=== PATIENT | female | born 1985 | race Caucasian/White ===

== ENCOUNTER 2016-12-09 16:21 | Emergency (ER) | payer MEDICARE, OTHER ==
[2016-12-09 16:29] VITALS: BP 134/88; PULSE 80; RESP 20; TEMP 98.3
[2016-12-09] MEDS ORDERED: BUPIVACAINE (PF) 0.5% 30 ML VIAL SQ STA (16:38)
--- NOTE | 2016-12-09 16:53 | ED ---
General Adult HPI - General Chief complaint: Dental/Oral Stated complaint: Tooth Ache Time Seen by Provider: 12/09/16 16:32 Source: patient, RN notes reviewed Mode of arrival: ambulatory Limitations: no limitations - History of Present Illness Initial comments: Patient is a 31-year-old female who presents emergency room today with a chief complaint of a dental filling that fell out yesterday. She does admit that she does have pain to the right side lower jaw. Does admit that it's sensitive to different liquids and hair itself. Patient does admit to some swelling locally. Does admit that it is a tooth and she is worried about possible infection. States she is trying to follow-up the dentist this week. Patient denies any other complaints or symptoms. Patient denies any recent fever, chills , shortness of breath, chest pain, back pain, abdominal pain, nausea or vomiting , numbness or tingling, dysuria or hematuria, constipation or diarrhea, headaches or visual changes, or any other complaints. - Related Data Home Medications Medication Instructions Recorded Confirmed Oxybutynin Chloride 5 mg PO TID 04/13/16 12/09/16 Escitalopram [Lexapro] 10 mg PO DAILY 05/08/16 12/09/16 Gabapentin 600 mg PO TID 05/08/16 12/09/16 Lurasidone HCl [Latuda] 20 mg PO DAILY 05/08/16 12/09/16 ALPRAZolam [Xanax] 0.5 mg PO BID PRN 12/09/16 12/09/16 Mirtazapine [Remeron] 45 mg PO HS 12/09/16 12/09/16 Previous Rx's Medication Instructions Recorded Acetaminophen-Codeine 300-30mg 1 each PO Q6H PRN #15 tablet 12/09/16 [Tylenol #3] Ibuprofen [Motrin] 600 mg PO Q6HR PRN #30 day 12/09/16 Penicillin V Potassium [Pen Vee K] 500 mg PO QID 10 Days 12/09/16 Allergies Allergy/AdvReac Type Severity Reaction Status Date / Time latex Allergy Mild Rash/Hives Verified 12/09/16 16:44 amphetamine aspartate Allergy SEIZURES Verified 12/09/16 16:44 [From Adderall] amphetamine sulfate Allergy SEIZURES Verified 12/09/16 16:44 [From Adderall] dextroamphetamine saccharate Allergy SEIZURES Verified 12/09/16 16:44 [From Adderall] dextroamphetamine sulfate Allergy SEIZURES Verified 12/09/16 16:44 [From Adderall] tramadol Allergy Unknown Verified 12/09/16 16:44 morphine AdvReac Mild Nausea & Verified 12/09/16 16:44 Vomiting Review of Systems ROS Statement: Those systems with pertinent positive or pertinent negative responses have been documented in the HPI. ROS Other: All systems not noted in ROS Statement are negative. Past Medical History Past Medical History: Asthma, GERD/Reflux, Rheumatoid Arthritis (RA), Sleep Apnea/CPAP/BIPAP, Thyroid Disorder Additional Past Medical History / Comment(s): sinusitis, low Vit D. IBS, kidney stones History of Any Multi-Drug Resistant Organisms: None Reported Past Surgical History: Adenoidectomy, Breast Surgery, Tonsillectomy, Tubal Ligation Additional Past Surgical History / Comment(s): tubes in ears, breast reduction Past Anesthesia/Blood Transfusion Reactions: Previous Problems w/ Anesthesia, Family History of Problems w/ Anesthesia, Motion Sickness, Postoperative Nausea & Vomiting (PONV) Additional Past Anesthesia/Blood Transfusion Reaction / Comment(s): states mother had coded during surgery Past Psychological History: Anxiety, Bipolar, Depression, PTSD Smoking Status: Current every day smoker Past Alcohol Use History: None Reported Past Drug Use History: Marijuana - Past Family History Father Family Medical History: Asthma Additional Family Medical History / Comment(s): Dad is 55 years of age. He also has history of ulcerative colitis. Mother Family Medical History: Rheumatoid Arthritis (RA), Thyroid Disorder (Atul's ) Additional Family Medical History / Comment(s): Mother is 47 years of age General Exam - General Exam Comments Initial Comments: General: The patient is awake and alert, in no distress, and does not appear acutely ill. Eye: Pupils are equal, round and reactive to light, extra-ocular movements are intact. No nystagmus. There is normal conjunctiva bilaterally. No signs of icterus. Ears, nose, mouth and throat: There are moist mucous membranes and no oral lesions. Does have tenderness in the gum line over tooth #30. Neck: The neck is supple, there is no tenderness or JVD. Cardiovascular: There is a regular rate and rhythm. No murmur, rub or gallop is appreciated. Respiratory: Lungs are clear to auscultation, respirations are non-labored, breath sounds are equal. No wheezes, stridor, rales, or rhonchi. Musculoskeletal: Normal ROM, no tenderness. Strength 5/5. Sensation intact. Pulses equal bilaterally 2+. Neurological: A&O x 3. CN II-XII intact, There are no obvious motor or sensory deficits. Coordination appears grossly intact. Speech is normal. Skin: Skin is warm and dry and no rashes or lesions are noted. Psychiatric: Cooperative, appropriate mood & affect, normal judgment. Limitations: no limitations Course Vital Signs 12/09/16 16:27 Temperature 98.3 F Pulse Rate 80 Respiratory 20 Rate Blood Pressure 134/88 Procedures - Procedures Initial comment: Total block performed here in the emergency room with 1:30 percent lidocaine without epi and 0.5% bupivacaine without epinephrine. Injection using 30-gauge needle used in the gumline of tooth #30. Patient had immediate relief. Disposition Clinical Impression: Pain, dental Disposition: HOME SELF-CARE Condition: Good Instructions: Toothache (ED) Additional Instructions: Please follow-up with dentist over the next 2-5 days. Please return to emergency room for any other concerns. Prescriptions: Acetaminophen-Codeine 300-30mg [Tylenol #3] 1 each PO Q6H PRN #15 tablet PRN Reason: Pain Ibuprofen [Motrin] 600 mg PO Q6HR PRN #30 day PRN Reason: Pain Penicillin V Potassium [Pen Vee K] 500 mg PO QID 10 Days Referrals: None,Stated [Primary Care Provider] - 1-2 days Time of Disposition: 16:52
== END 2016-12-09 17:05 | disposition home or self-care (01) ==
LOC: EC 16:21
DX: K08.89 Other specified disorders of teeth and supporting structures (principal); G47.30 Sleep apnea, unspecified; F41.9 Anxiety disorder, unspecified; F31.9 Bipolar disorder, unspecified; F43.10 Post-traumatic stress disorder, unspecified; F17.200 Nicotine dependence, unspecified, uncomplicated; Z88.5 Allergy status to narcotic agent; Z88.8 Allergy status to other drugs, medicaments and biological substances; Z91.040 Latex allergy status; Z79.899 Other long term (current) drug therapy
CPT/HCPCS: 64400; 99282

== ENCOUNTER 2017-02-08 21:35 | Emergency (ER) | payer MEDICARE, OTHER ==
[2017-02-08] MEDS ORDERED: SODIUM CHLORIDE 0.9% 1,000 ML IV STA ×2 (21:56)
[2017-02-08] MEDS ORDERED: KETOROLAC 30 MG/ML 1 ML VIAL IVP STA (21:56)
[2017-02-08] MEDS ORDERED: ONDANSETRON 4 MG/2 ML VIAL IVP STA (21:56)
[2017-02-08] MEDS ORDERED: HYDROmorphone 1 MG/ML 1 ML SYRINGE IVP STA ×2 (21:57→23:38)
[2017-02-08 22:09] LABS: Basophils # (A) 0.1 k/uL (0-0.2); Basophils % (A) 1 %; CH 33.8; CHCM 34.5; Eosinophils # (A) 0.2 k/uL (0-0.7); Eosinophils % (A) 2 %; HCT 40.4 % (34.0-46.0); Luc # (Auto) 0.27; Luc % (Auto) 3; Lymphocytes # (A) 3.8 k/uL (1.0-4.8); Lymphocytes % (A) 46 %; MCH 34.1 pg (25.0-35.0); MCHC 34.8 g/dL (31.0-37.0); MCV 98.1 fL (80.0-100.0); Mean Platelet Volume 7.2; Monocytes # (A) 0.3 k/uL (0-1.0); Monocytes % (A) 4 %; Neutrophils # (A) 3.7 k/uL (1.3-7.7); Neutrophils % (A) 44 %; RBC 4.11 m/uL (3.80-5.40); RDW 12.7 % (11.5-15.5); WBC 8.3 k/uL (3.8-10.6); WBC (Perox) 8.66
[2017-02-08 22:11] LABS: Appearance,Urine Cloudy (Clear); Bilirubin,Urine Negative (Negative); Glucose,Urine (UA) Negative (Negative); Ketones,Urine Negative (Negative); Leukocyte Esterase,Urine Small (Negative); Mucus,Urine Rare /hpf; Nitrite,Urine Negative (Negative); Particle Count 5122; Protein,Urine Trace (Negative); RBC,Urine 2 /hpf (0-5); Specific Gravity,Urine 1.015 (1.001-1.035); Squamous Epithelial Cell,Urine 10 /hpf (0-4); UA Billing (MACRO vs. MICRO) MICRO; Urobilinogen,Urine <2.0 mg/dL (<2.0); WBC,Urine 5 /hpf (0-5)
[2017-02-08 22:23] LABS: ALT 30 U/L (9-52); AST 52 U/L (14-36); Alkaline Phosphatase 77 U/L (38-126); Amylase 81 U/L (30-110); Anion Gap 10 mmol/L; Blood Urea Nitrogen 14 mg/dL (7-17); Calcium 9.5 mg/dL (8.4-10.2); Carbon Dioxide 20 mmol/L (22-30); Chloride 108 mmol/L (98-107); Glucose 84 mg/dL (74-99); Non-African American GFR(MDRD) >60 (>60 ml/min/1.73 sqM); Sodium 138 mmol/L (137-145); Total Bilirubin 1.1 mg/dL (0.2-1.3)
[2017-02-08 22:32] LABS: Potassium 5.5 mmol/L (3.5-5.1)
--- NOTE | 2017-02-08 22:44 | CT ---
EXAM: CT Abdomen and Pelvis Without Intravenous Contrast CLINICAL HISTORY: Reason: abdominal pain TECHNIQUE: Axial computed tomography images of the abdomen and pelvis without intravenous contrast. DLP is 360.9 mGy-cm. This CT exam was performed using one or more of the following dose reduction techniques: automated exposure control, adjustment of the mA and/or kV according to patient size, and/or use of iterative reconstruction technique. COMPARISON: 08/18/14 FINDINGS: Lower thorax: No acute findings. ABDOMEN: Liver: Unremarkable. Gallbladder and bile ducts: Unremarkable. No calcified stones. No ductal dilation. Pancreas: Unremarkable. No ductal dilation. Spleen: Unremarkable. No splenomegaly. Adrenals: Unremarkable. No mass. Kidneys and ureters: Unremarkable. No obstructing stones. No hydronephrosis. Stomach and bowel: Stool noted throughout the colon. No obstruction. No mucosal thickening. Appendix: No findings to suggest acute appendicitis. PELVIS: Bladder: Unremarkable. No stones. Reproductive: Unremarkable as visualized. ABDOMEN and PELVIS: Intraperitoneal space: Unremarkable. No free air. No significant fluid collection. Bones/joints: No acute fracture. No dislocation. Soft tissues: Unremarkable. Vasculature: Unremarkable. No abdominal aortic aneurysm. Lymph nodes: Unremarkable. No enlarged lymph nodes. Tubes, lines and devices: Surgical clips are seen in the pelvis. Correlate with history of tubal ligation. Note the left surgical clips do not appear to relate to the left adnexa/fallopian tubes. Correlate with surgical history. IMPRESSION: No acute findings.
[2017-02-08 23:51] VITALS: RESP 18
--- NOTE | 2017-02-09 00:07 | ED ---
General Adult HPI - General Chief complaint: Abdominal Pain Stated complaint: Abdominal Pain Time Seen by Provider: 02/08/17 21:37 Source: patient, EMS, RN notes reviewed, old records reviewed Mode of arrival: EMS Limitations: no limitations - History of Present Illness Initial comments: This is a 32-year-old female here for evaluation. Patient has a percussion without pain nausea. Severe abdominal pain sudden onset and worsening. Patient states she has history of kidney stones and this feels the same, but the patient is right sided right upper quadrant. Worse when she takes a deep breath. Worse when she moves. No modifying factors for pain at home. No fevers. No prior history of abdominal surgery. Patient denies - Related Data Home Medications Medication Instructions Recorded Confirmed Escitalopram [Lexapro] 10 mg PO QAM 05/08/16 02/08/17 Gabapentin 600 mg PO TID 05/08/16 02/08/17 Lurasidone HCl [Latuda] 20 mg PO HS 05/08/16 02/08/17 ALPRAZolam [Xanax] 0.5 mg PO BID PRN 12/09/16 02/08/17 Albuterol Inhaler [Ventolin Hfa 1 - 2 puff INHALATION RT-Q6H PRN 02/08/17 Inhaler] Allergies Allergy/AdvReac Type Severity Reaction Status Date / Time amphetamine aspartate Allergy SEIZURES Verified 02/08/17 22:33 [From Adderall] amphetamine sulfate Allergy SEIZURES Verified 02/08/17 22:33 [From Adderall] dextroamphetamine saccharate Allergy SEIZURES Verified 02/08/17 22:33 [From Adderall] dextroamphetamine sulfate Allergy SEIZURES Verified 02/08/17 22:33 [From Adderall] tramadol Allergy Unknown Verified 02/08/17 22:33 latex AdvReac Mild Dry Verified 02/08/17 22:33 Cracked Skin morphine AdvReac Mild Nausea & Verified 02/08/17 22:33 Vomiting Review of Systems ROS Statement: Those systems with pertinent positive or pertinent negative responses have been documented in the HPI. ROS Other: All systems not noted in ROS Statement are negative. Past Medical History Past Medical History: Asthma, GERD/Reflux, Rheumatoid Arthritis (RA), Sleep Apnea/CPAP/BIPAP, Thyroid Disorder Additional Past Medical History / Comment(s): sinusitis, low Vit D. IBS, kidney stones, p is being evaluated for hep c History of Any Multi-Drug Resistant Organisms: None Reported Past Surgical History: Adenoidectomy, Breast Surgery, Tonsillectomy, Tubal Ligation Additional Past Surgical History / Comment(s): tubes in ears, breast reduction Past Anesthesia/Blood Transfusion Reactions: Previous Problems w/ Anesthesia, Family History of Problems w/ Anesthesia, Motion Sickness, Postoperative Nausea & Vomiting (PONV) Additional Past Anesthesia/Blood Transfusion Reaction / Comment(s): states mother had coded during surgery Past Psychological History: Anxiety, Bipolar, Depression, PTSD Smoking Status: Current every day smoker Past Alcohol Use History: Occasional Past Drug Use History: Marijuana - Past Family History Father Family Medical History: Asthma Additional Family Medical History / Comment(s): Dad is 55 years of age. He also has history of ulcerative colitis. Mother Family Medical History: Rheumatoid Arthritis (RA), Thyroid Disorder (Atul's ) Additional Family Medical History / Comment(s): Mother is 47 years of age General Exam Limitations: no limitations General appearance: alert, in no apparent distress Head exam: Present: atraumatic, normocephalic, normal inspection Eye exam: Present: normal appearance, PERRL, EOMI. Absent: scleral icterus, conjunctival injection, periorbital swelling ENT exam: Present: normal exam, mucous membranes moist Neck exam: Present: normal inspection. Absent: tenderness, meningismus, lymphadenopathy Respiratory exam: Present: normal lung sounds bilaterally. Absent: respiratory distress, wheezes, rales, rhonchi, stridor Cardiovascular Exam: Present: regular rate, normal rhythm, normal heart sounds. Absent: systolic murmur, diastolic murmur, rubs, gallop, clicks GI/Abdominal exam: Present: soft, tenderness (Right upper quadrant), normal bowel sounds. Absent: distended, guarding, rebound, rigid Extremities exam: Present: normal inspection, full ROM, normal capillary refill. Absent: tenderness, pedal edema, joint swelling, calf tenderness Back exam: Present: normal inspection Neurological exam: Present: alert, oriented X3, CN II-XII intact Psychiatric exam: Present: normal affect, normal mood Skin exam: Present: warm, dry, intact, normal color. Absent: rash Course Vital Signs 02/08/17 02/08/17 02/08/17 21:48 22:30 23:50 Temperature 98 F Pulse Rate 105 H 84 90 Respiratory 18 16 18 Rate Blood Pressure 120/66 120/66 119/71 O2 Sat by Pulse 98 96 96 Oximetry - Reevaluation(s) Reevaluation #1: 02/09/17 00:07 The patient has adequate pain control at this time, reexamination patient paper machine backtender over right upper quadrant Medical Decision Making - Medical Decision Making 32 female at here with bowel pain, this time lab work multiple sets of imaging are negative. Patient be discharged home to continue outpatient pain control. - Lab Data Result diagrams: 02/08/17 21:56 02/08/17 21:56 Lab Results 02/08/17 02/08/17 02/08/17 Range/Units 21:56 21:56 21:56 WBC 8.3 (3.8-10.6) k/uL RBC 4.11 (3.80-5.40) m/uL Hgb 14.0 (11.4-16.0) gm/dL Hct 40.4 (34.0-46.0) % MCV 98.1 (80.0-100.0) fL MCH 34.1 (25.0-35.0) pg MCHC 34.8 (31.0-37.0) g/dL RDW 12.7 (11.5-15.5) % Plt Count 276 (150-450) k/uL Neutrophils % 44 % Lymphocytes % 46 % Monocytes % 4 % Eosinophils % 2 % Basophils % 1 % Neutrophils # 3.7 (1.3-7.7) k/uL Lymphocytes # 3.8 (1.0-4.8) k/uL Monocytes # 0.3 (0-1.0) k/uL Eosinophils # 0.2 (0-0.7) k/uL Basophils # 0.1 (0-0.2) k/uL Sodium 138 (137-145) mmol/L Potassium 5.5 H (3.5-5.1) mmol/L Chloride 108 H (98-107) mmol/L Carbon Dioxide 20 L (22-30) mmol/L Anion Gap 10 mmol/L BUN 14 (7-17) mg/dL Creatinine 0.80 (0.52-1.04) mg/dL Est GFR (MDRD) Af Amer >60 (>60 ml/min/1.73 sqM) Est GFR (MDRD) Non-Af >60 (>60 ml/min/1.73 sqM) Glucose 84 (74-99) mg/dL Calcium 9.5 (8.4-10.2) mg/dL Total Bilirubin 1.1 (0.2-1.3) mg/dL AST 52 H (14-36) U/L ALT 30 (9-52) U/L Alkaline Phosphatase 77 (38-126) U/L Total Protein 7.0 (6.3-8.2) g/dL Albumin 4.3 (3.5-5.0) g/dL Amylase 81 (30-110) U/L Lipase 127 (23-300) U/L Urine Color Urine Appearance (Clear) Urine pH (5.0-8.0) Ur Specific [place] (1.001-1.035) Urine Protein (Negative) Urine Glucose (UA) (Negative) Urine Ketones (Negative) Urine Blood (Negative) Urine Nitrite (Negative) Urine Bilirubin (Negative) Urine Urobilinogen (<2.0) mg/dL Ur Leukocyte Esterase (Negative) Urine RBC (0-5) /hpf Urine WBC (0-5) /hpf Ur Squamous Epith Cells (0-4) /hpf Urine Mucus (None) /hpf Urine HCG, Qual Not Detected (Not Detectd) 02/08/17 Range/Units 21:56 WBC (3.8-10.6) k/uL RBC (3.80-5.40) m/uL Hgb (11.4-16.0) gm/dL Hct (34.0-46.0) % MCV (80.0-100.0) fL MCH (25.0-35.0) pg MCHC (31.0-37.0) g/dL RDW (11.5-15.5) % Plt Count (150-450) k/uL Neutrophils % % Lymphocytes % % Monocytes % % Eosinophils % % Basophils % % Neutrophils # (1.3-7.7) k/uL Lymphocytes # (1.0-4.8) k/uL Monocytes # (0-1.0) k/uL Eosinophils # (0-0.7) k/uL Basophils # (0-0.2) k/uL Sodium (137-145) mmol/L Potassium (3.5-5.1) mmol/L Chloride (98-107) mmol/L Carbon Dioxide (22-30) mmol/L Anion Gap mmol/L BUN (7-17) mg/dL Creatinine (0.52-1.04) mg/dL Est GFR (MDRD) Af Amer (>60 ml/min/1.73 sqM) Est GFR (MDRD) Non-Af (>60 ml/min/1.73 sqM) Glucose (74-99) mg/dL Calcium (8.4-10.2) mg/dL Total Bilirubin (0.2-1.3) mg/dL AST (14-36) U/L ALT (9-52) U/L Alkaline Phosphatase (38-126) U/L Total Protein (6.3-8.2) g/dL Albumin (3.5-5.0) g/dL Amylase (30-110) U/L Lipase (23-300) U/L Urine Color Yellow Urine Appearance Cloudy H (Clear) Urine pH 6.0 (5.0-8.0) Ur Specific [place] 1.015 (1.001-1.035) Urine Protein Trace H (Negative) Urine Glucose (UA) Negative (Negative) Urine Ketones Negative (Negative) Urine Blood Negative (Negative) Urine Nitrite Negative (Negative) Urine Bilirubin Negative (Negative) Urine Urobilinogen <2.0 (<2.0) mg/dL Ur Leukocyte Esterase Small H (Negative) Urine RBC 2 (0-5) /hpf Urine WBC 5 (0-5) /hpf Ur Squamous Epith Cells 10 H (0-4) /hpf Urine Mucus Rare H (None) /hpf Urine HCG, Qual (Not Detectd) - Radiology Data Radiology results: report reviewed (CT pelvis negative, ultrasound of gallbladder), image reviewed Disposition Clinical Impression: Abdominal pain Disposition: HOME SELF-CARE Condition: Good Instructions: Abdominal Pain (ED) Referrals: Myles Foster MD [Primary Care Provider] - 1-2 days
--- NOTE | 2017-02-09 00:18 | US ---
EXAM: US Abdomen Limited, Right Upper Quadrant CLINICAL HISTORY: Reason: Pain TECHNIQUE: Real-time ultrasound of the right upper quadrant with image documentation. COMPARISON: No relevant prior studies available. FINDINGS: Liver: Unremarkable. No mass. No intrahepatic bile duct dilation. Gallbladder: Contracted. No gallstones. No significant wall thickening or pericholecystic fluid. Common bile duct: CBD is 2.2 mm in diameter. No stones. No dilation. Pancreas: Pancreatic tail is obscured by bowel gas. The head and neck are unremarkable. Right kidney: Unremarkable. No stones. No solid mass. No hydronephrosis. IMPRESSION: No evidence of cholecystitis.
[2017-02-09 00:59] VITALS: BP 107/76; PULSE 83; TEMP 97.9
== END 2017-02-09 00:58 | disposition home or self-care (01) ==
LOC: EC 21:35
DX: R10.11 Right upper quadrant pain (principal); F41.9 Anxiety disorder, unspecified; F31.9 Bipolar disorder, unspecified; F43.10 Post-traumatic stress disorder, unspecified; F17.200 Nicotine dependence, unspecified, uncomplicated; Z79.899 Other long term (current) drug therapy; Z88.5 Allergy status to narcotic agent; Z91.040 Latex allergy status; Z88.8 Allergy status to other drugs, medicaments and biological substances
CPT/HCPCS: 36415; 80053; 82150; 83690; 85025; 81001; 81025; 87086; 76705; 74176; 99285; 96374; 96375 ×2; 96376; 96361 ×3; J2405; J1885; J1170

== ENCOUNTER → 2017-02-08 | Outpatient (CLI) | payer MEDICARE, OTHER ==
[2017-02-08 12:09] LABS: Basophils # (A) 0.1 k/uL (0-0.2); Basophils % (A) 1 %; CH 33.3; CHCM 33.9; Eosinophils # (A) 0.1 k/uL (0-0.7); Eosinophils % (A) 2 %; HCT 43.1 % (34.0-46.0); HDW 2.43; HGB 15.2 gm/dL (11.4-16.0); Luc # (Auto) 0.25; Luc % (Auto) 4; Lymphocytes # (A) 3.2 k/uL (1.0-4.8); Lymphocytes % (A) 48 %; MCH 34.5 pg (25.0-35.0); MCHC 35.1 g/dL (31.0-37.0); MCV 98.3 fL (80.0-100.0); Mean Platelet Volume 7.3; Monocytes # (A) 0.4 k/uL (0-1.0); Monocytes % (A) 6 %; Neutrophils # (A) 2.6 k/uL (1.3-7.7); Neutrophils % (A) 39 %; RBC 4.39 m/uL (3.80-5.40); RDW 12.7 % (11.5-15.5); WBC 6.6 k/uL (3.8-10.6); WBC (Perox) 6.71
[2017-02-08 12:17] LABS: ALT 36 U/L (9-52); AST 24 U/L (14-36); Alkaline Phosphatase 80 U/L (38-126); Anion Gap 9 mmol/L; Blood Urea Nitrogen 14 mg/dL (7-17); Calcium 10.1 mg/dL (8.4-10.2); Carbon Dioxide 26 mmol/L (22-30); Chloride 107 mmol/L (98-107); Glucose 76 mg/dL (74-99); Non-African American GFR(MDRD) >60 (>60 ml/min/1.73 sqM); Potassium 4.4 mmol/L (3.5-5.1); Sodium 142 mmol/L (137-145); Total Bilirubin 0.5 mg/dL (0.2-1.3)
[2017-02-11 09:54] LABS: HCV Qualitative Result Not detected (Not detected)
== END | disposition home or self-care (01) ==
LOC: LABWHC1 11:27
PROVIDERS: ATTEND Internal Medicine Gastroenterology
DX: B18.2 Chronic viral hepatitis C (principal)
CPT/HCPCS: 36415; 80053; 85025; 87522

== ENCOUNTER 2017-02-28 12:10 | Emergency (ER) | payer MEDICARE, OTHER ==
[2017-02-28 12:41] VITALS: RESP 18
[2017-02-28] MEDS ORDERED: LORazepam 1 MG TAB PO STA (13:02)
[2017-02-28] MEDS ORDERED: diphenhydrAMINE 50 MG CAP PO STA (13:02)
[2017-02-28] MEDS ORDERED: HYDROcodone/APAP 5-325MG 1 EACH TAB PO STA (13:02)
[2017-02-28] MEDS ORDERED: ONDANSETRON ODT 4 MG TAB PO STA (13:02)
[2017-02-28] MEDS ORDERED: predniSONE 50 MG TAB PO STA (13:21)
[2017-02-28] MEDS ORDERED: FAMOTIDINE 20 MG TAB PO STA (13:21)
--- NOTE | 2017-02-28 13:24 | ED ---
General Adult HPI - General Chief complaint: Nausea/Vomiting/Diarrhea Stated complaint: Rash, Fever, NVD Time Seen by Provider: 02/28/17 12:43 Source: patient, RN notes reviewed, old records reviewed Mode of arrival: ambulatory Limitations: no limitations - History of Present Illness Initial comments: This is a 32-year-old female to the ER for evaluation today. Patient is coming in for a multitude of complaints. Patient states she does have some history of psychiatric disease, has been unable to take her medication from for 3 days for nausea vomiting and diarrhea. States she does have similar sick contacts including boyfriend and friend. States he was also exposed to fleas she does have significant amount of bug bites which also her boyfriend have. The friend just moved into her house recently. Patient is otherwise occasional fevers and chills. No documented fever at home. Denies shortness of breath or chest pain , occasional abdominal pain when she does experience nausea and diarrhea. No travel history. No modifying factors for symptoms at this time. - Related Data Home Medications Medication Instructions Recorded Confirmed Escitalopram [Lexapro] 10 mg PO QAM 05/08/16 02/08/17 Gabapentin 600 mg PO TID 05/08/16 02/08/17 Lurasidone HCl [Latuda] 20 mg PO HS 05/08/16 02/08/17 ALPRAZolam [Xanax] 0.5 mg PO BID PRN 12/09/16 02/08/17 Albuterol Inhaler [Ventolin Hfa 1 - 2 puff INHALATION RT-Q6H PRN 02/08/17 Inhaler] Allergies Allergy/AdvReac Type Severity Reaction Status Date / Time amphetamine aspartate Allergy SEIZURES Verified 02/28/17 12:41 [From Adderall] amphetamine sulfate Allergy SEIZURES Verified 02/28/17 12:41 [From Adderall] dextroamphetamine saccharate Allergy SEIZURES Verified 02/28/17 12:41 [From Adderall] dextroamphetamine sulfate Allergy SEIZURES Verified 02/28/17 12:41 [From Adderall] tramadol Allergy Unknown Verified 02/28/17 12:41 latex AdvReac Mild Dry Verified 02/28/17 12:41 Cracked Skin morphine AdvReac Mild Nausea & Verified 02/28/17 12:41 Vomiting Review of Systems ROS Statement: Those systems with pertinent positive or pertinent negative responses have been documented in the HPI. ROS Other: All systems not noted in ROS Statement are negative. Past Medical History Past Medical History: Asthma, GERD/Reflux, Rheumatoid Arthritis (RA), Sleep Apnea/CPAP/BIPAP, Thyroid Disorder Additional Past Medical History / Comment(s): sinusitis, low Vit D. IBS, kidney stones, p is being evaluated for hep c History of Any Multi-Drug Resistant Organisms: None Reported Past Surgical History: Adenoidectomy, Breast Surgery, Tonsillectomy, Tubal Ligation Additional Past Surgical History / Comment(s): tubes in ears, breast reduction Past Anesthesia/Blood Transfusion Reactions: Previous Problems w/ Anesthesia, Family History of Problems w/ Anesthesia, Motion Sickness, Postoperative Nausea & Vomiting (PONV) Additional Past Anesthesia/Blood Transfusion Reaction / Comment(s): states mother had coded during surgery Past Psychological History: Anxiety, Bipolar, Depression, PTSD Smoking Status: Current every day smoker Past Alcohol Use History: Occasional Past Drug Use History: Marijuana - Past Family History Father Family Medical History: Asthma Additional Family Medical History / Comment(s): Dad is 55 years of age. He also has history of ulcerative colitis. Mother Family Medical History: Rheumatoid Arthritis (RA), Thyroid Disorder (Atul's ) Additional Family Medical History / Comment(s): Mother is 47 years of age General Exam - General Exam Comments Initial Comments: Diffuse body rash,. Acute urticaria, pruritic Limitations: no limitations General appearance: alert, in no apparent distress Head exam: Present: atraumatic, normocephalic, normal inspection Eye exam: Present: normal appearance, PERRL, EOMI. Absent: scleral icterus, conjunctival injection, periorbital swelling ENT exam: Present: normal exam, mucous membranes moist Neck exam: Present: normal inspection. Absent: tenderness, meningismus, lymphadenopathy Respiratory exam: Present: normal lung sounds bilaterally. Absent: respiratory distress, wheezes, rales, rhonchi, stridor Cardiovascular Exam: Present: regular rate, normal rhythm, normal heart sounds. Absent: systolic murmur, diastolic murmur, rubs, gallop, clicks GI/Abdominal exam: Present: soft, normal bowel sounds. Absent: distended, tenderness, guarding, rebound, rigid Extremities exam: Present: normal inspection, full ROM, normal capillary refill. Absent: tenderness, pedal edema, joint swelling, calf tenderness Back exam: Present: normal inspection Neurological exam: Present: alert, oriented X3, CN II-XII intact Psychiatric exam: Present: normal affect, normal mood Skin exam: Present: warm, dry, intact, normal color. Absent: rash Course Vital Signs 02/28/17 12:38 Temperature 97.6 F Pulse Rate 94 Respiratory 18 Rate Blood Pressure 141/89 O2 Sat by Pulse 95 Oximetry - Reevaluation(s) Reevaluation #1: 02/28/17 13:21 Patient does have significant improvement in all symptoms at this time, no acute distress Medical Decision Making - Medical Decision Making 32 female the ER for evaluation regarding a rash, nausea, vomiting, patient does have will look sick evaluation for rash regarded gratefully with itching of her itching is improved with Benadryl here in the ER. Patient will be given course of steroids with nausea medication for home. Patient to take Motrin at home for pain. Underlying viral syndrome. Disposition Clinical Impression: Abdominal pain, Nausea and vomiting, Flea bite, Viral syndrome Disposition: HOME SELF-CARE Condition: Good Instructions: Viral Syndrome (ED), Insect Bite or Sting (ED) Referrals: Myles Foster MD [Primary Care Provider] - 1-2 days
[2017-02-28 13:56] VITALS: BP 126/78; PULSE 87; TEMP 97.8
== END 2017-02-28 14:15 | disposition home or self-care (01) ==
LOC: EC 12:10
DX: T14.8XXA Other injury of unspecified body region, initial encounter (principal); R10.9 Unspecified abdominal pain; R11.2 Nausea with vomiting, unspecified; R19.7 Diarrhea, unspecified; B34.9 Viral infection, unspecified; F31.9 Bipolar disorder, unspecified; F41.9 Anxiety disorder, unspecified; F43.10 Post-traumatic stress disorder, unspecified; F17.200 Nicotine dependence, unspecified, uncomplicated; Z79.899 Other long term (current) drug therapy; Z88.5 Allergy status to narcotic agent; Z88.8 Allergy status to other drugs, medicaments and biological substances; Z88.6 Allergy status to analgesic agent; Z91.040 Latex allergy status; W57.XXXA Bitten or stung by nonvenomous insect and other nonvenomous arthropods, initial encounter
CPT/HCPCS: 99284 ×2; 87502; J7512

== ENCOUNTER 2017-04-08 14:26 | Emergency (ER) | payer MEDICARE, OTHER ==
[2017-04-08] MEDS ORDERED: diphenhydrAMINE 50 MG/ML 1 ML VIAL IVP STA (15:03)
[2017-04-08] MEDS ORDERED: PANTOPRAZOLE 40 MG/10 ML VIAL IVP STA (15:03)
[2017-04-08] MEDS ORDERED: SODIUM CHLORIDE 0.9% 1,000 ML IV STA ×2 (15:03)
[2017-04-08] MEDS ORDERED: METOCLOPRAMIDE 5 MG/ML 2 ML VIAL IVP STA (15:03)
[2017-04-08] MEDS ORDERED: HYDROmorphone 0.5 MG/0.5 ML SYRINGE IVP STA (15:03)
[2017-04-08] MEDS ORDERED: MAG HYDROX/AL HYDROX/SIMETH 30 ML, HYOSCYAMINE ELIXIR 10 ML, CIMETIDINE HCL 300 MG, LID... PO STA ×4 (15:05)
[2017-04-08] MEDS ORDERED: HYDROmorphone 1 MG/ML 1 ML SYRINGE IVP STA (15:09)
--- NOTE | 2017-04-08 15:16 | ED ---
Abdominal Pain HPI - General Chief Complaint: Abdominal Pain Stated Complaint: Abd Pain Time Seen by Provider: 04/08/17 14:47 Source: patient, RN notes reviewed, old records reviewed Mode of arrival: ambulatory Limitations: no limitations - History of Present Illness Initial Comments: Patient is a 32-year-old female presents emergency Department chief complaint of one month of epigastric abdominal pain, severe nausea and multiple episodes of vomiting. Patient reports she had an episode of bloody vomiting today. Patient states that she goes to bed feeling nauseated, and wakes of vomiting. She reports that she has abdominal pain and the only way she can relieve it is by aching alcohol. Patient reports that she drinks approximately every day. She states that she has no history of gallbladder disease. Surgical history includes tubal ligation, tonsillectomy and adenoidectomy, and right arm veinectomy for abscess. She reports that she saw her primary care provider regards to the symptoms. She states that the primary care provider started her on Prilosec and Zofran. She reports that this is not helping. Patient states that she has a burning-like pain in the center of her abdomen and occasionally radiates towards her back. She reports that she has a family history of ulcerative clysis had previous colonoscopy. She was told that she does have GERD. She reports that the vomiting episodes and pain started to recur so she started drinking this morning at 5 AM. She had a 25 oz beer. - Related Data Home Medications Medication Instructions Recorded Confirmed Gabapentin 600 mg PO TID 05/08/16 04/08/17 Lurasidone HCl [Latuda] 20 mg PO QAM 05/08/16 04/08/17 ALPRAZolam [Xanax] 0.5 mg PO BID PRN 12/09/16 04/08/17 Albuterol Inhaler [Ventolin Hfa 1 - 2 puff INHALATION RT-Q6H PRN 02/08/17 Inhaler] Oxybutynin Chloride [Ditropan] 5 mg PO TID 02/28/17 04/08/17 Escitalopram [Lexapro] 20 mg PO DAILY 04/08/17 04/08/17 Mirtazapine [Remeron] 15 mg PO HS 04/08/17 04/08/17 Omeprazole 20 mg PO DAILY 04/08/17 04/08/17 Previous Rx's Medication Instructions Recorded Metoclopramide [Reglan] 5 mg PO ACHS #15 tab 04/08/17 Omeprazole 40 mg PO DAILY #30 capsule. 04/08/17 Sucralfate [Carafate] 1 gm PO BID #60 tablet 04/08/17 chlordiazePOXIDE HCl [Librium] 25 mg PO QID #10 capsule 04/08/17 Allergies Allergy/AdvReac Type Severity Reaction Status Date / Time amphetamine aspartate Allergy SEIZURES Verified 04/08/17 14:59 [From Adderall] amphetamine sulfate Allergy SEIZURES Verified 04/08/17 14:59 [From Adderall] dextroamphetamine saccharate Allergy SEIZURES Verified 04/08/17 14:59 [From Adderall] dextroamphetamine sulfate Allergy SEIZURES Verified 04/08/17 14:59 [From Adderall] tramadol Allergy Unknown Verified 04/08/17 14:59 latex AdvReac Mild Dry Verified 04/08/17 14:59 Cracked Skin morphine AdvReac Mild Nausea & Verified 04/08/17 14:59 Vomiting Review of Systems ROS Statement: Those systems with pertinent positive or pertinent negative responses have been documented in the HPI. ROS Other: All systems not noted in ROS Statement are negative. Past Medical History Past Medical History: Asthma, GERD/Reflux, Rheumatoid Arthritis (RA), Sleep Apnea/CPAP/BIPAP, Thyroid Disorder Additional Past Medical History / Comment(s): sinusitis, low Vit D. IBS, kidney stones, p is being evaluated for hep c History of Any Multi-Drug Resistant Organisms: None Reported Past Surgical History: Adenoidectomy, Breast Surgery, Tonsillectomy, Tubal Ligation Additional Past Surgical History / Comment(s): tubes in ears, breast reduction Past Anesthesia/Blood Transfusion Reactions: Previous Problems w/ Anesthesia, Family History of Problems w/ Anesthesia, Motion Sickness, Postoperative Nausea & Vomiting (PONV) Additional Past Anesthesia/Blood Transfusion Reaction / Comment(s): states mother had coded during surgery Past Psychological History: Anxiety, Bipolar, Depression, PTSD Smoking Status: Current every day smoker Past Alcohol Use History: Occasional Past Drug Use History: Marijuana - Past Family History Father Family Medical History: Asthma Additional Family Medical History / Comment(s): Dad is 55 years of age. He also has history of ulcerative colitis. Mother Family Medical History: Rheumatoid Arthritis (RA), Thyroid Disorder (Atul's ) Additional Family Medical History / Comment(s): Mother is 47 years of age General Exam - General Exam Comments Initial Comments: Anxious 32-year-old female. Patient is crying in exam room. Limitations: no limitations General appearance: alert, in no apparent distress Head exam: Present: atraumatic, normocephalic, normal inspection Eye exam: Present: normal appearance, PERRL, EOMI. Absent: scleral icterus, conjunctival injection, periorbital swelling ENT exam: Present: normal exam, mucous membranes moist Neck exam: Present: normal inspection. Absent: tenderness, meningismus, lymphadenopathy Respiratory exam: Present: normal lung sounds bilaterally. Absent: respiratory distress, wheezes, rales, rhonchi, stridor Cardiovascular Exam: Present: regular rate, normal rhythm, normal heart sounds. Absent: systolic murmur, diastolic murmur, rubs, gallop, clicks GI/Abdominal exam: Present: soft, normal bowel sounds. Absent: distended, tenderness, guarding, rebound, rigid Extremities exam: Present: normal inspection, full ROM, normal capillary refill. Absent: tenderness, pedal edema, joint swelling, calf tenderness Back exam: Present: normal inspection Neurological exam: Present: alert, oriented X3, CN II-XII intact Psychiatric exam: Present: normal affect, normal mood Skin exam: Present: warm, dry, intact, normal color. Absent: rash Course Vital Signs 04/08/17 04/08/17 14:41 16:56 Temperature 98.5 F 97.1 F L Pulse Rate 95 80 Respiratory 16 19 Rate Blood Pressure 124/92 126/80 O2 Sat by Pulse 97 98 Oximetry Medical Decision Making - Medical Decision Making Patient is a 32-year-old female presents emergency Department chief complaint of one month of epigastric abdominal pain, severe nausea and multiple episodes of vomiting. Patient reports she had an episode of bloody vomiting today. Patient states that she goes to bed feeling nauseated, and wakes of vomiting. She reports that she has abdominal pain and the only way she can relieve it is by aching alcohol. Patient reports that she drinks approximately every day. Patient has minimal RUQ and epigastric tenderness, discussed that patient has gastritis and likely an ulcer at this time. Discussed that consuming alcohol is making her problem worse. PAtient labs were reviewed, normal hemoglobin, negative occult stool. PAtient KUB shows possible illeus or gastrenteritis. Patient given GI cocktail and nausea medication and is feeling better at thsi time. Patient did have serum alcohol of 83. Patient will be discharged with librium taper for alcohol abuse and advised to stop drinking and seizure prevention, she will also be started on Carafate, prilosec, and reglan. Discussed close follow up with PCP and gI specialist. - Lab Data Result diagrams: 04/08/17 15:28 04/08/17 15:28 Lab Results 04/08/17 04/08/17 04/08/17 Range/Units 15:28 15:28 15:28 WBC 8.9 (3.8-10.6) k/uL RBC 4.72 (3.80-5.40) m/uL Hgb 15.7 (11.4-16.0) gm/dL Hct 46.1 H (34.0-46.0) % MCV 97.7 (80.0-100.0) fL MCH 33.3 (25.0-35.0) pg MCHC 34.1 (31.0-37.0) g/dL RDW 12.1 (11.5-15.5) % Plt Count 326 (150-450) k/uL Neutrophils % 37 % Lymphocytes % 52 % Monocytes % 5 % Eosinophils % 2 % Basophils % 1 % Neutrophils # 3.3 (1.3-7.7) k/uL Lymphocytes # 4.6 (1.0-4.8) k/uL Monocytes # 0.5 (0-1.0) k/uL Eosinophils # 0.2 (0-0.7) k/uL Basophils # 0.1 (0-0.2) k/uL PT 10.3 (9.0-12.0) sec INR 1.0 (<1.2) APTT 25.2 (22.0-30.0) sec Sodium 143 (137-145) mmol/L Potassium 4.2 (3.5-5.1) mmol/L Chloride 106 (98-107) mmol/L Carbon Dioxide 24 (22-30) mmol/L Anion Gap 13 mmol/L BUN 14 (7-17) mg/dL Creatinine 0.80 (0.52-1.04) mg/dL Est GFR (MDRD) Af Amer >60 (>60 ml/min/1.73 sqM) Est GFR (MDRD) Non-Af >60 (>60 ml/min/1.73 sqM) Glucose 82 (74-99) mg/dL Calcium 10.4 H (8.4-10.2) mg/dL Total Bilirubin 0.3 (0.2-1.3) mg/dL AST 30 (14-36) U/L ALT 28 (9-52) U/L Alkaline Phosphatase 90 (38-126) U/L Total Protein 7.4 (6.3-8.2) g/dL Albumin 4.7 (3.5-5.0) g/dL Amylase 60 (30-110) U/L Lipase 60 (23-300) U/L Urine Color Urine Appearance (Clear) Urine pH (5.0-8.0) Ur Specific [place] (1.001-1.035) Urine Protein (Negative) Urine Glucose (UA) (Negative) Urine Ketones (Negative) Urine Blood (Negative) Urine Nitrite (Negative) Urine Bilirubin (Negative) Urine Urobilinogen (<2.0) mg/dL Ur Leukocyte Esterase (Negative) Urine RBC (0-5) /hpf Urine WBC (0-5) /hpf Ur Squamous Epith Cells (0-4) /hpf Urine Mucus (None) /hpf Stool Occult Blood (Negative) Serum Alcohol 81 mg/dL 04/08/17 04/08/17 Range/Units 15:28 16:30 WBC (3.8-10.6) k/uL RBC (3.80-5.40) m/uL Hgb (11.4-16.0) gm/dL Hct (34.0-46.0) % MCV (80.0-100.0) fL MCH (25.0-35.0) pg MCHC (31.0-37.0) g/dL RDW (11.5-15.5) % Plt Count (150-450) k/uL Neutrophils % % Lymphocytes % % Monocytes % % Eosinophils % % Basophils % % Neutrophils # (1.3-7.7) k/uL Lymphocytes # (1.0-4.8) k/uL Monocytes # (0-1.0) k/uL Eosinophils # (0-0.7) k/uL Basophils # (0-0.2) k/uL PT (9.0-12.0) sec INR (<1.2) APTT (22.0-30.0) sec Sodium (137-145) mmol/L Potassium (3.5-5.1) mmol/L Chloride (98-107) mmol/L Carbon Dioxide (22-30) mmol/L Anion Gap mmol/L BUN (7-17) mg/dL Creatinine (0.52-1.04) mg/dL Est GFR (MDRD) Af Amer (>60 ml/min/1.73 sqM) Est GFR (MDRD) Non-Af (>60 ml/min/1.73 sqM) Glucose (74-99) mg/dL Calcium (8.4-10.2) mg/dL Total Bilirubin (0.2-1.3) mg/dL AST (14-36) U/L ALT (9-52) U/L Alkaline Phosphatase (38-126) U/L Total Protein (6.3-8.2) g/dL Albumin (3.5-5.0) g/dL Amylase (30-110) U/L Lipase (23-300) U/L Urine Color Light Yellow Urine Appearance Cloudy H (Clear) Urine pH 7.0 (5.0-8.0) Ur Specific [place] 1.012 (1.001-1.035) Urine Protein Negative (Negative) Urine Glucose (UA) Negative (Negative) Urine Ketones Negative (Negative) Urine Blood Trace H (Negative) Urine Nitrite Negative (Negative) Urine Bilirubin Negative (Negative) Urine Urobilinogen <2.0 (<2.0) mg/dL Ur Leukocyte Esterase Negative (Negative) Urine RBC 1 (0-5) /hpf Urine WBC 3 (0-5) /hpf Ur Squamous Epith Cells 5 H (0-4) /hpf Urine Mucus Rare H (None) /hpf Stool Occult Blood Negative (Negative) Serum Alcohol mg/dL Disposition Clinical Impression: Gastritis, Alcohol use Disposition: HOME SELF-CARE Condition: Good Instructions: Gastritis (ED) Additional Instructions: Patient advised to avoid any acidic foods, have a bland diet including bananas rice applesauce and toast. Recommended following up with GI specialist as well as primary care provider. Take all the medicines as prescribed. Patient needs to discontinue drinking alcohol. Use the Librium taper as directed. Prescriptions: chlordiazePOXIDE HCl [Librium] 25 mg PO QID #10 capsule Metoclopramide [Reglan] 5 mg PO ACHS #15 tab Omeprazole 40 mg PO DAILY #30 capsule. Sucralfate [Carafate] 1 gm PO BID #60 tablet Referrals: Myles Foster MD [Primary Care Provider] - 1-2 days Time of Disposition: 16:42
[2017-04-08 15:58] LABS: Appearance,Urine Cloudy (Clear); Basophils # (A) 0.1 k/uL (0-0.2); Basophils % (A) 1 %; Bilirubin,Urine Negative (Negative); CH 34.3; CHCM 35.3; Eosinophils # (A) 0.2 k/uL (0-0.7); Eosinophils % (A) 2 %; Glucose,Urine (UA) Negative (Negative); HCT 46.1 % (34.0-46.0); HDW 2.53; HGB 15.7 gm/dL (11.4-16.0); Ketones,Urine Negative (Negative); Leukocyte Esterase,Urine Negative (Negative); Luc # (Auto) 0.27; Luc % (Auto) 3; Lymphocytes # (A) 4.6 k/uL (1.0-4.8); Lymphocytes % (A) 52 %; MCH 33.3 pg (25.0-35.0); MCHC 34.1 g/dL (31.0-37.0); MCV 97.7 fL (80.0-100.0); Mean Platelet Volume 6.8; Monocytes # (A) 0.5 k/uL (0-1.0); Monocytes % (A) 5 %; Mucus,Urine Rare /hpf; Neutrophils # (A) 3.3 k/uL (1.3-7.7); Neutrophils % (A) 37 %; Nitrite,Urine Negative (Negative); Particle Count 1420; Protein,Urine Negative (Negative); RBC 4.72 m/uL (3.80-5.40); RBC,Urine 1 /hpf (0-5); RDW 12.1 % (11.5-15.5); Specific Gravity,Urine 1.012 (1.001-1.035); Squamous Epithelial Cell,Urine 5 /hpf (0-4); UA Billing (MACRO vs. MICRO) MICRO; Urobilinogen,Urine <2.0 mg/dL (<2.0); WBC 8.9 k/uL (3.8-10.6); WBC,Urine 3 /hpf (0-5)
--- NOTE | 2017-04-08 15:59 | XR ---
EXAMINATION TYPE: XR KUB DATE OF EXAM: 04/08/2017 CLINICAL DATA: 32 year-old female abdominal pain, [facility] COMPARISON: 06/01/2013 FINDINGS: Lung bases are clear. No evidence for free intraperitoneal air. Small air-fluid levels throughout the colon. No abnormal dilated bowel. No significant stool burden. No suspicious calcifications. Bilateral tubal ligation clips. IMPRESSION: 1. No evidence of bowel obstruction or free intraperitoneal air. 2. Small air-fluid levels throughout the colon. Correlate for enteritis or generalized ileus.
[2017-04-08 16:03] LABS: Partial Thromboplastin Time 25.2 sec (22.0-30.0); Prothrombin Time 10.3 sec (9.0-12.0)
[2017-04-08 16:06] LABS: ALT 28 U/L (9-52); AST 30 U/L (14-36); Alkaline Phosphatase 90 U/L (38-126); Amylase 60 U/L (30-110); Anion Gap 13 mmol/L; Blood Urea Nitrogen 14 mg/dL (7-17); Calcium 10.4 mg/dL (8.4-10.2); Carbon Dioxide 24 mmol/L (22-30); Chloride 106 mmol/L (98-107); Glucose 82 mg/dL (74-99); Non-African American GFR(MDRD) >60 (>60 ml/min/1.73 sqM); Potassium 4.2 mmol/L (3.5-5.1); Sodium 143 mmol/L (137-145); Total Bilirubin 0.3 mg/dL (0.2-1.3); Total Protein 7.4 g/dL (6.3-8.2)
[2017-04-08 16:17] LABS: Alcohol 81 mg/dL
[2017-04-08 17:06] VITALS: BP 126/80; PULSE 80; RESP 19; TEMP 97.1
== END 2017-04-08 17:07 | disposition home or self-care (01) ==
LOC: EC 14:26
DX: K29.70 Gastritis, unspecified, without bleeding (principal); K21.9 Gastro-esophageal reflux disease without esophagitis; K58.9 Irritable bowel syndrome, unspecified; F41.9 Anxiety disorder, unspecified; F31.9 Bipolar disorder, unspecified; F43.10 Post-traumatic stress disorder, unspecified; F17.200 Nicotine dependence, unspecified, uncomplicated; Z90.49 Acquired absence of other specified parts of digestive tract; Z98.51 Tubal ligation status; Z72.89 Other problems related to lifestyle; Z79.899 Other long term (current) drug therapy; Z88.5 Allergy status to narcotic agent; Z88.6 Allergy status to analgesic agent; Z88.8 Allergy status to other drugs, medicaments and biological substances; Z91.040 Latex allergy status
CPT/HCPCS: 36415; 80053; 82150; 83690; 85025; 85610; 85730; 82272; 81001; 80320; 74000; 99284; 96374; 96375 ×3; 96361 ×2; J1200; J2765; J1170; C9113

== ENCOUNTER 2017-06-27 19:19 | Inpatient (IN) | payer MEDICARE, MEDICAID ==
[2017-06-27 20:34] LABS: Basophils # (A) 0.1 k/uL (0-0.2); Basophils % (A) 1 %; Eosinophils % (A) 1 %; HCT 45.3 % (34.0-46.0); HGB 15.5 gm/dL (11.4-16.0); Lymphocytes # (A) 3.1 k/uL (1.0-4.8); Lymphocytes % (A) 42 %; MCHC 34.1 g/dL (31.0-37.0); MCV 96.7 fL (80.0-100.0); Mean Platelet Volume 6.9; Monocytes # (A) 0.4 k/uL (0-1.0); Monocytes % (A) 5 %; Neutrophils # (A) 3.6 k/uL (1.3-7.7); Neutrophils % (A) 49 %; Platelet Count 303 k/uL (150-450); RBC 4.68 m/uL (3.80-5.40); RDW 12.2 % (11.5-15.5); WBC 7.4 k/uL (3.8-10.6)
[2017-06-27 20:43] LABS: ALT 39 U/L (9-52); AST 48 U/L (14-36); Albumin 4.5 g/dL (3.5-5.0); Alkaline Phosphatase 98 U/L (38-126); Anion Gap 12 mmol/L; Blood Urea Nitrogen 11 mg/dL (7-17); Calcium 9.8 mg/dL (8.4-10.2); Carbon Dioxide 25 mmol/L (22-30); Chloride 106 mmol/L (98-107); Glucose 92 mg/dL (74-99); Lipase 148 U/L (23-300); Sodium 143 mmol/L (137-145); Total Bilirubin 0.4 mg/dL (0.2-1.3)
[2017-06-27] MEDS ORDERED: DIPH,PERTUS(ACELL)TETVAC-LF 0.5 ML VIAL IM ONE (21:04)
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
[2017-06-27 21:16] LABS: Appearance,Urine Clear (Clear); Bilirubin,Urine Negative (Negative); Blood,Urine Negative (Negative); Color,Urine Light Yellow; Glucose,Urine (UA) Negative (Negative); Ketones,Urine Negative (Negative); Leukocyte Esterase,Urine Negative (Negative); Nitrite,Urine Negative (Negative); PH, Urine 6.5 (5.0-8.0); Protein,Urine Negative (Negative); Specific Gravity,Urine 1.006 (1.001-1.035); Urobilinogen,Urine <2.0 mg/dL (<2.0)
[2017-06-27 21:26] LABS: Cocaine Screen,Urine Detected (NotDetected); Phencyclidine Screen,Urine Not Detected (NotDetected); Urn Cannabinoid Scrn Detected (NotDetected)
[2017-06-27 21:27] LABS: Amphetamine Screen,Urine Not Detected (NotDetected); Barbiturate Screen,Urine Not Detected (NotDetected); Benzodiazepines Screen,Urine Detected (NotDetected); Methadone Screen, Urine Not Detected (NotDetected); Opiate Screen,Urine Not Detected (NotDetected); Oxycodone Screen, Urine Not Detected (NotDetected); Tricyclic Antidepressant,Urine Not Detected (NotDetected)
[2017-06-27] MEDS ORDERED: cloNIDine HCL 0.1 MG TAB PO PRN (22:35)
[2017-06-27] MEDS ORDERED: MAGNESIUM HYDROXIDE 2,400 MG/10 ML CUP PO PRN (22:37)
[2017-06-27] MEDS ORDERED: MAG HYDROX/AL HYDROX/SIMETH 30 ML CUP PO PRN (22:37)
[2017-06-27] MEDS ORDERED: LORazepam 1 MG TAB PO PRN (22:37)
[2017-06-27] MEDS ORDERED: ZIPRASIDONE 20 MG VIAL IM PRN (22:37)
[2017-06-28 00:07] VITALS: BMI 31.6
[2017-06-28] MEDS ORDERED: LORazepam 1 MG TAB PO STA (06:15)
[2017-06-28] MEDS ORDERED: CALCIUM CARBONATE 500 MG CHEWABLE PO PRN (06:15)
[2017-06-28] MEDS ORDERED: LORazepam 1 MG TAB PO PRN (06:16)
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
[2017-06-28] MEDS: NICOTINE 21MG/24HR PATCH TRANSDERM SCH (08:18)
[2017-06-28] MEDS: ONDANSETRON ODT 4 MG TAB PO PRN ×2 (08:54→23:29)
[2017-06-28] MEDS: THIAMINE 100 MG TAB PO SCH (08:55)
[2017-06-28] MEDS: GABAPENTIN 300 MG CAP PO SCH ×3 (08:55→20:41)
[2017-06-28] MEDS: SUCRALFATE 1 GM TAB PO SCH ×2 (08:55→20:41)
[2017-06-28] MEDS: ESCITALOPRAM 20 MG TAB PO SCH (08:55)
[2017-06-28] MEDS: OXYBUTYNIN CHLORIDE 5 MG TAB PO SCH ×3 (08:55→20:41)
[2017-06-28] MEDS: PANTOPRAZOLE 40 MG TABLET PO SCH ×2 (08:56→20:41)
[2017-06-28] MEDS: FOLIC ACID 1 MG TAB PO SCH (11:47)
[2017-06-28] MEDS: ACETAMINOPHEN TAB 325 MG TAB PO PRN (11:50)
[2017-06-28] MEDS ORDERED: ONDANSETRON 4 MG TAB PO PRN (12:46)
[2017-06-28] MEDS: ALBUTEROL INHALER 60 PUFF/8 GM INHALER INHALATION PRN (13:01)
[2017-06-28] MEDS: NALTREXONE HCL 50 MG TAB PO SCH (13:06)
[2017-06-28] MEDS: OLANZapine 5 MG TAB PO SCH ×3 (13:06→21:05)
[2017-06-28] MEDS: cloNIDine HCL 0.1 MG TAB PO SCH ×2 (13:09→20:41)
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
[2017-06-28 19:37] LABS: Hemoglobin A1C 4.8 % (4.0-6.0)
[2017-06-28] MEDS ORDERED: MIRTAZAPINE 15 MG TAB PO SCH (21:00)
[2017-06-28] MEDS: IMIPRAMINE 25 MG TAB PO SCH (21:05)
[2017-06-28] MEDS: LORazepam 1 MG TAB PO PRN (23:27)
[2017-06-29] MEDS: OXYBUTYNIN CHLORIDE 5 MG TAB PO SCH ×3 (08:16→21:31)
[2017-06-29] MEDS: SUCRALFATE 1 GM TAB PO SCH ×2 (08:16→21:31)
[2017-06-29] MEDS: ESCITALOPRAM 20 MG TAB PO SCH (08:16)
[2017-06-29] MEDS: NALTREXONE HCL 50 MG TAB PO SCH (08:16)
[2017-06-29] MEDS: GABAPENTIN 300 MG CAP PO SCH ×3 (08:16→21:31)
[2017-06-29] MEDS: NICOTINE 21MG/24HR PATCH TRANSDERM SCH (08:16)
[2017-06-29] MEDS: OLANZapine 5 MG TAB PO SCH ×3 (08:17→21:31)
[2017-06-29] MEDS: PANTOPRAZOLE 40 MG TABLET PO SCH ×2 (08:17→21:30)
[2017-06-29] MEDS: cloNIDine HCL 0.1 MG TAB PO SCH ×2 (08:17→21:31)
[2017-06-29] MEDS: LORazepam 1 MG TAB PO PRN ×2 (09:18→18:57)
[2017-06-29] MEDS: ALBUTEROL INHALER 60 PUFF/8 GM INHALER INHALATION PRN (10:47)
[2017-06-29] MEDS: THIAMINE 100 MG TAB PO SCH (12:32)
[2017-06-29] MEDS: FOLIC ACID 1 MG TAB PO SCH (12:32)
--- NOTE | 2017-06-29 15:05 | P.PN ---
Progress Note - Text Progress Note Date: 06/29/17 Interval history: Patient is seen in cross coverage today for Dr. March. She reports that when she was admitted she was having some thoughts of suicide. Says she had gotten an argument with her boyfriend. She has been started on Zyprexa and tofranil, as well as ReVia. She is currently on Ativan if needed to prevent alcohol withdrawals. She states that she had started drinking heavily. Reports that she has no plans to be drinking alcohol after she leaves the hospital. Mental status exam: She is alert and cooperative with the interview. Her speech is fluent, not rapid or pressured. Thought processes are organized. Her mood she describes as some ups and downs. She denies any current thoughts of harm to self or others. No evidence of psychosis or agitation. Plan we will maintain current psychotropic medication regimen. We will monitor for side effects monitor her ongoing response. We'll continue to cover this patient through the weekend.
[2017-06-29] MEDS: ACETAMINOPHEN TAB 325 MG TAB PO PRN (15:13)
[2017-06-29] MEDS: ONDANSETRON ODT 4 MG TAB PO PRN (17:01)
[2017-06-29] MEDS: IMIPRAMINE 25 MG TAB PO SCH (21:31)
[2017-06-30] MEDS: NALTREXONE HCL 50 MG TAB PO SCH (08:05)
[2017-06-30] MEDS: SUCRALFATE 1 GM TAB PO SCH ×2 (08:05→20:04)
[2017-06-30] MEDS: NICOTINE 21MG/24HR PATCH TRANSDERM SCH (08:05)
[2017-06-30] MEDS: GABAPENTIN 300 MG CAP PO SCH ×3 (08:05→20:04)
[2017-06-30] MEDS: OXYBUTYNIN CHLORIDE 5 MG TAB PO SCH ×3 (08:05→20:05)
[2017-06-30] MEDS: cloNIDine HCL 0.1 MG TAB PO SCH ×2 (08:06→20:06)
[2017-06-30] MEDS: ESCITALOPRAM 20 MG TAB PO SCH (08:06)
[2017-06-30] MEDS: OLANZapine 5 MG TAB PO SCH ×3 (08:06→20:04)
[2017-06-30] MEDS: PANTOPRAZOLE 40 MG TABLET PO SCH ×2 (08:44→20:04)
[2017-06-30] MEDS: THIAMINE 100 MG TAB PO SCH (12:34)
[2017-06-30] MEDS: FOLIC ACID 1 MG TAB PO SCH (12:34)
--- NOTE | 2017-06-30 12:55 | P.PN ---
Progress Note - Text Progress Note Date: 06/30/17 Interval history: Patient is seen again in cross coverage today. She makes reference to readiness for discharge soon. She does feel like her mood overall is doing better. She inquires regarding the Ativan when necessary, it is set for certain withdrawal parameters. She does not feel like she's having any significant alcohol withdrawal at this point in time. She inquires regarding getting back on her Xanax when necessary. We did discuss that the Ativan is in place if she is to be experiencing any alcohol withdrawals, that she was drinking alcohol pretty heavily prior to admission. She does state that last night she had a vivid dream where she thought somebody was in her room. She would like to stay with her current psychotropic medications. Mental status exam: She is alert and cooperative with the interview. Her mood she describes overall is doing better. She denies any thoughts of harm to self or others. No evidence of active psychosis or agitation. Plan: Patient be maintained on current psychotropic medication regimen. No new changes at this point in time. We'll continue to monitor for any medication side effects and monitor her ongoing response to treatment.
[2017-06-30] MEDS: ONDANSETRON ODT 4 MG TAB PO PRN (16:20)
[2017-06-30] MEDS: ALBUTEROL INHALER 60 PUFF/8 GM INHALER INHALATION PRN ×2 (17:12→21:04)
[2017-06-30] MEDS: IMIPRAMINE 25 MG TAB PO SCH (20:04)
[2017-06-30] MEDS ORDERED: LORazepam 1 MG TAB PO STA (20:17)
[2017-07-01] MEDS: GABAPENTIN 300 MG CAP PO SCH ×3 (08:23→20:45)
[2017-07-01] MEDS: NALTREXONE HCL 50 MG TAB PO SCH (08:23)
[2017-07-01] MEDS: SUCRALFATE 1 GM TAB PO SCH ×2 (08:23→20:45)
[2017-07-01] MEDS: OXYBUTYNIN CHLORIDE 5 MG TAB PO SCH ×3 (08:23→20:44)
[2017-07-01] MEDS: ESCITALOPRAM 20 MG TAB PO SCH (08:24)
[2017-07-01] MEDS: OLANZapine 5 MG TAB PO SCH ×3 (08:24→20:45)
[2017-07-01] MEDS: NICOTINE 21MG/24HR PATCH TRANSDERM SCH (08:24)
[2017-07-01] MEDS: PANTOPRAZOLE 40 MG TABLET PO SCH ×2 (08:24→20:45)
[2017-07-01] MEDS: ALBUTEROL INHALER 60 PUFF/8 GM INHALER INHALATION PRN ×2 (09:24→21:17)
[2017-07-01] MEDS: cloNIDine HCL 0.1 MG TAB PO SCH ×3 (12:05→20:45)
[2017-07-01] MEDS: THIAMINE 100 MG TAB PO SCH (12:05)
[2017-07-01] MEDS: FOLIC ACID 1 MG TAB PO SCH (12:05)
--- NOTE | 2017-07-01 16:50 | PN ---
PROGRESS NOTE DATE OF SERVICE: 07/01/2017. CHIEF COMPLAINT: The patient was depressed. She had suicide thoughts. She believed that she had out-of- control drinking. INTERVAL HISTORY: Patient has been doing fair. She had some ups and downs over the weekend. It is noted that she received Ativan 1 time for high anxiety and another time for high blood pressure. Otherwise, her vital signs have been stable. Her blood pressure and other vital signs on Saturday were up and down. She would have warranted Ativan Saturday for an elevated blood pressure at 2025 of 169/104. Today, her vital signs have been reasonably stable. Overall, she says that her mood and anxiety levels are manageable. She comes out in the day area. She interacts with others. She has been attending groups. She sleeps fairly well at night. She tolerates her psychotropic medications. Her CIWA scores yesterday and today have all been 8 or less. MENTAL STATUS: Patient gave good eye contact. She was a little restless. Her thoughts were clear. She was spontaneous and interactive. Her affect was anxious. Her mood reserved. She did not appear to be significantly distressed. ASSESSMENT: I will continue the current diagnosis and treatment plan. I will continue psychotropic medications the same. We will continue to monitor for early acute alcohol withdrawal. The aim of treatment is to help manage early withdrawal issues. I will increase her clonidine up to 0.1 mg 3 times a day. Her blood pressures have fluctuated with some pressures that have been high. Otherwise most withdrawal symptoms have been fairly manageable. I had an extensive discussion with the patient regarding concerns for long- term use of the benzodiazepines. We will continue to focus on stabilization and discharge planning. MMODL / IJN: [id number] /
[2017-07-01] MEDS ORDERED: IMIPRAMINE 25 MG TAB PO SCH (21:00)
[2017-07-02 06:35] VITALS: TEMP 98.3
[2017-07-02] MEDS: NICOTINE 21MG/24HR PATCH TRANSDERM SCH (08:35)
[2017-07-02] MEDS: SUCRALFATE 1 GM TAB PO SCH (08:35)
[2017-07-02] MEDS: OLANZapine 5 MG TAB PO SCH (08:36)
[2017-07-02] MEDS: cloNIDine HCL 0.1 MG TAB PO SCH (08:36)
[2017-07-02] MEDS: NALTREXONE HCL 50 MG TAB PO SCH (08:36)
[2017-07-02] MEDS: GABAPENTIN 300 MG CAP PO SCH (08:36)
[2017-07-02] MEDS: PANTOPRAZOLE 40 MG TABLET PO SCH (08:36)
[2017-07-02] MEDS: ESCITALOPRAM 20 MG TAB PO SCH (08:36)
[2017-07-02] MEDS: OXYBUTYNIN CHLORIDE 5 MG TAB PO SCH (08:36)
[2017-07-02 08:54] VITALS: BP 116/82; PULSE 96; RESP 20
[2017-07-02] MEDS: ALBUTEROL INHALER 60 PUFF/8 GM INHALER INHALATION PRN (09:29)
[2017-07-02] MEDS: FOLIC ACID 1 MG TAB PO SCH (11:48)
[2017-07-02] MEDS: THIAMINE 100 MG TAB PO SCH (11:48)
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
== END 2017-07-02 12:34 | disposition home or self-care (01) | DRG 885 ==
LOC: EC 19:19 → 3MHU 21:50
PROVIDERS: ADMIT Psychiatry & Neurology Psychiatry; ATTEND Psychiatry & Neurology Psychiatry
PROC: 3E0234Z Introduction of Serum, Toxoid and Vaccine into Muscle, Percutaneous Approach (ICD-10-PCS; principal; 2017-06-27)
DX: F33.2 Major depressive disorder, recurrent severe without psychotic features (principal); R45.851 Suicidal ideations; F11.20 Opioid dependence, uncomplicated; F10.239 Alcohol dependence with withdrawal, unspecified; F13.20 Sedative, hypnotic or anxiolytic dependence, uncomplicated; F15.20 Other stimulant dependence, uncomplicated; G40.909 Epilepsy, unspecified, not intractable, without status epilepticus; F12.20 Cannabis dependence, uncomplicated; Z23 Encounter for immunization; F41.9 Anxiety disorder, unspecified; F43.10 Post-traumatic stress disorder, unspecified; G47.33 Obstructive sleep apnea (adult) (pediatric); E03.9 Hypothyroidism, unspecified; G25.81 Restless legs syndrome; K58.9 Irritable bowel syndrome, unspecified; K21.9 Gastro-esophageal reflux disease without esophagitis; J45.20 Mild intermittent asthma, uncomplicated; F17.200 Nicotine dependence, unspecified, uncomplicated; S61.512A Laceration without foreign body of left wrist, initial encounter; S00.12XA Contusion of left eyelid and periocular area, initial encounter; Z79.899 Other long term (current) drug therapy; Z87.442 Personal history of urinary calculi; Z86.19 Personal history of other infectious and parasitic diseases; Y04.0XXA Assault by unarmed brawl or fight, initial encounter; Z81.4 Family history of other substance abuse and dependence
CPT/HCPCS: 36415; 80053; 80061; 80306; 81003; 81025; 82075; 83036; 83690; 84443; 85025; 90715; 94640; 99285

== ENCOUNTER 2017-11-14 09:25 | Emergency (ER) | payer MEDICARE, OTHER ==
[2017-11-14 10:10] LABS: Amphetamine Screen,Urine Detected (NotDetected); Barbiturate Screen,Urine Not Detected (NotDetected); Benzodiazepines Screen,Urine Detected (NotDetected); Cocaine Screen,Urine Not Detected (NotDetected); Methadone Screen, Urine Not Detected (NotDetected); Opiate Screen,Urine Not Detected (NotDetected); Oxycodone Screen, Urine Not Detected (NotDetected); Phencyclidine Screen,Urine Not Detected (NotDetected); Tricyclic Antidepressant,Urine Detected (NotDetected); Urn Cannabinoid Scrn Detected (NotDetected)
--- NOTE | 2017-11-14 11:41 | ED ---
Psych HPI - General Chief Complaint: Psychiatric Symptoms Stated Complaint: MENTAL HEALTH Time Seen by Provider: 11/14/17 09:43 Source: patient, EMS, RN notes reviewed Mode of arrival: EMS Limitations: no limitations - History of Present Illness Initial Comments: 32-year-old female presents to the emergency department for psychiatric evaluation. Patient reportedly threatened self this morning because she was upset about her family accusing her of selling stuff or drugs. Patient states that she does use drugs occasionally. Patient has alcohol abuse. Patient denies any physical complaints. Patient states she is not suicidal or homicidal. - Related Data Home Medications Medication Instructions Recorded Confirmed ALPRAZolam [Xanax] 0.5 mg PO BID PRN 11/14/17 11/14/17 OLANZapine [ZyPREXA] 7.5 mg PO BID 11/14/17 11/14/17 cloNIDine HCL [Catapres] 0.1 mg PO HS 11/14/17 11/14/17 Previous Rx's Medication Instructions Recorded Albuterol Inhaler [Ventolin Hfa 2 puff INHALATION RT-Q6H PRN puff 07/02/17 Inhaler] Escitalopram [Lexapro] 20 mg PO DAILY #30 tab 07/02/17 Gabapentin [Neurontin] 600 mg PO TID #0 cap 07/02/17 Imipramine [Tofranil] 37.5 mg PO HS #45 tab 07/02/17 Allergies Allergy/AdvReac Type Severity Reaction Status Date / Time amphetamine aspartate Allergy SEIZURES Verified 11/14/17 09:51 [From Adderall] amphetamine sulfate Allergy SEIZURES Verified 11/14/17 09:51 [From Adderall] dextroamphetamine saccharate Allergy SEIZURES Verified 11/14/17 09:51 [From Adderall] dextroamphetamine sulfate Allergy SEIZURES Verified 11/14/17 09:51 [From Adderall] lamotrigine [From Lamictal] Allergy SEIZURE Verified 11/14/17 09:51 tramadol Allergy "FELT LIKE Verified 11/14/17 09:51 I WAS GOING TO HAVE A SEIZURE" morphine AdvReac Severe Nausea & Verified 11/14/17 09:51 Vomiting latex AdvReac Mild Dry Verified 11/14/17 09:51 Cracked Skin/RASH Review of Systems ROS Statement: Those systems with pertinent positive or pertinent negative responses have been documented in the HPI. ROS Other: All systems not noted in ROS Statement are negative. 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, LILIANA- non compliant with CPAP, Overactive bladder History of Any Multi-Drug Resistant Organisms: None Reported Past Surgical History: Adenoidectomy, Breast Surgery, Tonsillectomy, Tubal Ligation Additional Past Surgical History / Comment(s): tubes in ears, breast reduction, colonoscopy/EGD- multiple, incision and drainage of wound rt anticubital Past Anesthesia/Blood Transfusion Reactions: Previous Problems w/ Anesthesia, Family History of Problems w/ Anesthesia, Motion Sickness, Postoperative Nausea & Vomiting (PONV) Additional Past Anesthesia/Blood Transfusion Reaction / Comment(s): states mother had coded during surgery Past Psychological History: Anxiety, Bipolar, Depression, PTSD Smoking Status: Current every day smoker Past Alcohol Use History: Daily, Heavy Past Drug Use History: Marijuana, Prescription Drug Abuse - Past Family History Father Family Medical History: Asthma Additional Family Medical History / Comment(s): Dad is 55 years of age. He also has history of ulcerative colitis. Mother Family Medical History: Rheumatoid Arthritis (RA), Thyroid Disorder Additional Family Medical History / Comment(s): Mother is 47 years of age, Atul's thyroiditis General Exam Limitations: no limitations General appearance: alert, in no apparent distress Head exam: Present: atraumatic, normocephalic, normal inspection Eye exam: Present: normal appearance, PERRL, EOMI. Absent: scleral icterus, conjunctival injection, periorbital swelling ENT exam: Present: normal exam, normal oropharynx, mucous membranes moist, TM's normal bilaterally Neck exam: Present: normal inspection, full ROM. Absent: tenderness, meningismus, lymphadenopathy Respiratory exam: Present: normal lung sounds bilaterally. Absent: respiratory distress, wheezes, rales, rhonchi, stridor Cardiovascular Exam: Present: regular rate, normal rhythm, normal heart sounds. Absent: systolic murmur, diastolic murmur, rubs, gallop, clicks GI/Abdominal exam: Present: soft, normal bowel sounds. Absent: distended, tenderness, guarding, rebound, rigid Neurological exam: Present: alert, oriented X3, CN II-XII intact Skin exam: Present: warm, dry, intact, normal color. Absent: rash Course Vital Signs 11/14/17 09:26 Temperature 98.2 F Pulse Rate 103 H Respiratory 20 Rate Blood Pressure 150/84 O2 Sat by Pulse 100 Oximetry Medical Decision Making - Medical Decision Making 32-year-old female presented for psychiatric evaluation. Patient was evaluated by EPS and case discussed with on-call psychiatrist. They do not recommend inpatient treatment. Patient will follow palpation. - Lab Data Lab Results 11/14/17 11/14/17 Range/Units 09:40 09:40 Urine HCG, Qual Not Detected (Not Detectd) Urine Opiates Screen Not Detected (NotDetected) Ur Oxycodone Screen Not Detected (NotDetected) Urine Methadone Screen Not Detected (NotDetected) Ur Propoxyphene Screen Not Detected (NotDetected) Ur Barbiturates Screen Not Detected (NotDetected) U Tricyclic Antidepress Detected H (NotDetected) Ur Phencyclidine Scrn Not Detected (NotDetected) Ur Amphetamines Screen Detected H (NotDetected) U Methamphetamines Scrn Detected H (NotDetected) U Benzodiazepines Scrn Detected H (NotDetected) Urine Cocaine Screen Not Detected (NotDetected) U Marijuana (THC) Screen Detected H (NotDetected) Disposition Clinical Impression: Polysubstance abuse, Depression Disposition: HOME SELF-CARE Condition: Stable Instructions: Depression (ED) Additional Instructions: Please return to the Emergency Department if symptoms worsen or any other concerns. Is patient prescribed a controlled substance at d/c from ED?: No Referrals: Donna Reid MD [Primary Care Provider] - 1-2 days Time of Disposition: 11:41
[2017-11-14 12:13] VITALS: BP 149/74; PULSE 78; RESP 16; TEMP 97.8
== END 2017-11-14 12:11 | disposition home or self-care (01) ==
LOC: EC 09:25
DX: F19.10 Other psychoactive substance abuse, uncomplicated (principal); F31.9 Bipolar disorder, unspecified; F41.9 Anxiety disorder, unspecified; F43.10 Post-traumatic stress disorder, unspecified; G47.33 Obstructive sleep apnea (adult) (pediatric); Z99.89 Dependence on other enabling machines and devices; Z86.19 Personal history of other infectious and parasitic diseases; F17.200 Nicotine dependence, unspecified, uncomplicated; Z79.899 Other long term (current) drug therapy; Z91.040 Latex allergy status; Z88.6 Allergy status to analgesic agent; Z88.5 Allergy status to narcotic agent; Z88.8 Allergy status to other drugs, medicaments and biological substances
CPT/HCPCS: 80306; 81025; 82075; 99284

== ENCOUNTER 2017-12-10 23:51 | Emergency (ER) | payer MEDICARE, OTHER | END 2017-12-11 02:12 | disposition home or self-care (01) | LOC: EC 23:51 | DX: S61.512A Laceration without foreign body of left wrist, initial encounter (principal); F43.21 Adjustment disorder with depressed mood; R45.851 Suicidal ideations; R45.83 Excessive crying of child, adolescent or adult; F17.200 Nicotine dependence, unspecified, uncomplicated; Z79.899 Other long term (current) drug therapy; Z88.5 Allergy status to narcotic agent; Z88.8 Allergy status to other drugs, medicaments and biological substances; X78.9XXA Intentional self-harm by unspecified sharp object, initial encounter; Y93.89 Activity, other specified | CPT/HCPCS: 12002; 82075; 99285 ==

== ENCOUNTER 2018-02-21 17:50 | Emergency (ER) | payer MEDICARE, OTHER ==
[2018-02-21 18:07] VITALS: TEMP 97.7
[2018-02-21] MEDS ORDERED: PROPARACAINE 0.5% OPHTH DROPS 15 ML BTL BOTH EYES STA (18:13)
--- NOTE | 2018-02-21 18:31 | ED ---
General Adult HPI - General Chief complaint: Eye Problems Stated complaint: eyes burning Time Seen by Provider: 02/21/18 18:09 Source: patient, RN notes reviewed Mode of arrival: ambulatory Limitations: no limitations - History of Present Illness Initial comments: Patient is a pleasant 33-year-old female presenting to the emergency Department with eye discomfort. Onset of symptoms was this morning. Symptoms were mild. Patient states they were itchy. Patient did have some drainage and discharge that was somewhat thick and yellow. Patient states sometimes she sees some mucus otherwise no visual problems. Patient woke up from a nap prior to arrival and discomfort was significantly worse. Discomfort is more so in the right eye but does have a little bit in the left as well. No headache. No trauma. Patient states she has been scratching her eyes. - Related Data Home Medications Medication Instructions Recorded Confirmed ALPRAZolam [Xanax] 0.5 mg PO BID PRN 11/14/17 02/21/18 OLANZapine [ZyPREXA] 7.5 mg PO BID 11/14/17 02/21/18 cloNIDine HCL [Catapres] 0.1 mg PO HS 11/14/17 02/21/18 Losartan [Cozaar] 25 mg PO DAILY 02/21/18 02/21/18 Naltrexone HCl [Revia] 50 mg PO DAILY 02/21/18 02/21/18 Omeprazole 40 mg PO BID 02/21/18 02/21/18 Ondansetron HCl [Zofran] 4 mg PO TID PRN 02/21/18 02/21/18 Oxybutynin Chloride 5 mg PO TID 02/21/18 02/21/18 Sucralfate [Carafate] 1 gm PO AC-BID 02/21/18 02/21/18 Previous Rx's Medication Instructions Recorded Albuterol Inhaler [Ventolin Hfa 2 puff INHALATION RT-Q6H PRN puff 07/02/17 Inhaler] Escitalopram [Lexapro] 20 mg PO DAILY #30 tab 07/02/17 Gabapentin [Neurontin] 600 mg PO TID #0 cap 07/02/17 Imipramine [Tofranil] 37.5 mg PO HS #45 tab 07/02/17 Allergies Allergy/AdvReac Type Severity Reaction Status Date / Time amphetamine aspartate Allergy SEIZURES Verified 11/14/17 09:51 [From Adderall] amphetamine sulfate Allergy SEIZURES Verified 11/14/17 09:51 [From Adderall] dextroamphetamine saccharate Allergy SEIZURES Verified 11/14/17 09:51 [From Adderall] dextroamphetamine sulfate Allergy SEIZURES Verified 11/14/17 09:51 [From Adderall] lamotrigine [From Lamictal] Allergy SEIZURE Verified 11/14/17 09:51 tramadol Allergy "FELT LIKE Verified 11/14/17 09:51 I WAS GOING TO HAVE A SEIZURE" morphine AdvReac Severe Nausea & Verified 11/14/17 09:51 Vomiting latex AdvReac Mild Dry Verified 11/14/17 09:51 Cracked Skin/RASH Review of Systems ROS Statement: Those systems with pertinent positive or pertinent negative responses have been documented in the HPI. ROS Other: All systems not noted in ROS Statement are negative. Constitutional: Denies: fever Eyes: Reports: eye pain, eye discharge (Patient states her eyes were closed shut when she woke up) ENT: Denies: throat pain Respiratory: Denies: cough Cardiovascular: Denies: chest pain Endocrine: Denies: fatigue Gastrointestinal: Denies: abdominal pain Genitourinary: Denies: dysuria Musculoskeletal: Denies: back pain Skin: Denies: rash Neurological: Denies: headache, weakness, confusion 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, LILIANA- non compliant with CPAP, Overactive bladder History of Any Multi-Drug Resistant Organisms: None Reported Past Surgical History: Adenoidectomy, Breast Surgery, Tonsillectomy, Tubal Ligation Additional Past Surgical History / Comment(s): tubes in ears, breast reduction, colonoscopy/EGD- multiple, incision and drainage of wound rt anticubital Past Anesthesia/Blood Transfusion Reactions: Previous Problems w/ Anesthesia, Family History of Problems w/ Anesthesia, Motion Sickness, Postoperative Nausea & Vomiting (PONV) Additional Past Anesthesia/Blood Transfusion Reaction / Comment(s): states mother had coded during surgery Past Psychological History: Anxiety, Bipolar, Depression, PTSD Smoking Status: Current every day smoker Past Alcohol Use History: Daily, Heavy Past Drug Use History: Marijuana, Prescription Drug Abuse - Past Family History Father Family Medical History: Asthma Additional Family Medical History / Comment(s): Dad is 55 years of age. He also has history of ulcerative colitis. Mother Family Medical History: Rheumatoid Arthritis (RA), Thyroid Disorder Additional Family Medical History / Comment(s): Mother is 47 years of age, Atul's thyroiditis General Exam Limitations: no limitations General appearance: alert Head exam: Present: atraumatic Eye exam: Present: PERRL, EOMI, conjunctival injection (Right medial), other ( Discomfort resolved with proparacaine. Flurosyn uptake on the right medial eye at 3 o'clock position.). Absent: nystagmus Expanded Pupils: Regular, Round: Bilateral, Reactive: Bilateral Sclera/Conjunctival: Injection: Right Anterior chamber: Normal Inspection: Bilateral Posterior chamber: Normal Inspection: Bilateral IOP (R) in mmH IOP (L) in mmH ENT exam: Present: normal oropharynx Neck exam: Present: normal inspection Respiratory exam: Present: normal lung sounds bilaterally Cardiovascular Exam: Present: regular rate, normal rhythm GI/Abdominal exam: Present: soft. Absent: tenderness Extremities exam: Present: normal inspection Neurological exam: Present: alert. Absent: motor sensory deficit Psychiatric exam: Present: normal affect, normal mood Skin exam: Present: normal color. Absent: rash Course Vital Signs 02/21/18 18:04 Temperature 97.7 F Pulse Rate 120 H Respiratory 24 Rate Blood Pressure 120/80 O2 Sat by Pulse 98 Oximetry - Reevaluation(s) Reevaluation #1: 02/21/18 19:48 Case was discussed in detail with Dr. Castellanos. He is aware that dendritic lesion is felt to be unlikely however not cannot be completely ruled out at this time. He does recommend erythromycin ointment and couldn't relax and will follow-up with patient on Saturday. Disposition Clinical Impression: Corneal abrasion Disposition: HOME SELF-CARE Condition: Stable Instructions: Conjunctivitis (ED), Corneal Abrasion (ED) Additional Instructions: Please follow-up with Dr. Castellanos Saturday. Return for increased pain, fevers, swelling, increased drainage, increased redness, worsening symptoms, decreased vision, or any other concerns. Use erythromycin ointment 4 times daily. Use ketorolac drops 1 drop to each eye up to 3 times daily as needed. Is patient prescribed a controlled substance at d/c from ED?: No Referrals: Donna Reid MD [Primary Care Provider] - 1-2 days Sidney Hurst MD [STAFF PHYSICIAN] - 1-2 days Time of Disposition: 19:55
[2018-02-21] MEDS ORDERED: KETOROLAC 0.5% OPHTH DROPS 5 ML BTL BOTH EYES STA (19:57)
[2018-02-21] MEDS ORDERED: ERYTHROMYCIN 5 MG/GM OPHTH OINT 3.5 GM TUBE BOTH EYES STA (19:57)
[2018-02-21] MEDS ORDERED: HYDROcodone/APAP 5-325MG 1 EACH TAB PO STA (19:59)
[2018-02-21 20:21] VITALS: BP 134/82; PULSE 68; RESP 20
== END 2018-02-21 20:37 | disposition home or self-care (01) ==
LOC: EC 17:50
DX: S05.01XA Injury of conjunctiva and corneal abrasion without foreign body, right eye, initial encounter (principal); K21.0 Gastro-esophageal reflux disease with esophagitis; G47.33 Obstructive sleep apnea (adult) (pediatric); F41.9 Anxiety disorder, unspecified; F31.9 Bipolar disorder, unspecified; F17.200 Nicotine dependence, unspecified, uncomplicated; Z79.899 Other long term (current) drug therapy; Z88.5 Allergy status to narcotic agent; Z88.8 Allergy status to other drugs, medicaments and biological substances; Z91.040 Latex allergy status; X50.9XXA Other and unspecified overexertion or strenuous movements or postures, initial encounter
CPT/HCPCS: 99283

== ENCOUNTER 2018-06-05 18:48 | Emergency (ER) | payer MEDICARE, OTHER ==
[2018-06-05] MEDS ORDERED: SODIUM CHLORIDE 0.9% 1,000 ML IV ONE (21:19)
[2018-06-05] MEDS ORDERED: KETOROLAC 30 MG/ML 1 ML VIAL IVP STA (21:19)
--- NOTE | 2018-06-05 21:19 | ED ---
General Adult HPI - General Chief complaint: Urogenital Stated complaint: Vaginal pain/swelling Time Seen by Provider: 06/05/18 21:02 Source: patient, RN notes reviewed Mode of arrival: ambulatory Limitations: no limitations - History of Present Illness Initial comments: 33-year-old female with a past medical history of asthma, GERD, hepatitis C, RA , IBS presents to the emergency department for a chief complaint of vaginal pain and swelling times one day. Patient states she noticed this today. Patient did admit was painful when she had intercourse 3 days ago. Patient states the pain as a burning pain at the opening of the vagina. She denies any concern for STDs or . Patient has not tried anything for pain. She denies fevers or chills at home. Patient has no other complaints at this time including shortness of breath, chest pain, abdominal pain, nausea or vomiting, headache, or visual changes. - Related Data Home Medications Medication Instructions Recorded Confirmed ALPRAZolam [Xanax] 0.5 mg PO BID PRN 11/14/17 06/05/18 OLANZapine [ZyPREXA] 7.5 mg PO BID 11/14/17 06/05/18 cloNIDine HCL [Catapres] 0.1 mg PO HS 11/14/17 06/05/18 Losartan [Cozaar] 25 mg PO DAILY 02/21/18 06/05/18 Omeprazole 40 mg PO BID 02/21/18 06/05/18 Ondansetron HCl [Zofran] 4 mg PO TID PRN 02/21/18 06/05/18 Oxybutynin Chloride 5 mg PO TID 02/21/18 06/05/18 Sucralfate [Carafate] 1 gm PO AC-BID 02/21/18 06/05/18 Previous Rx's Medication Instructions Recorded Albuterol Inhaler [Ventolin Hfa 2 puff INHALATION RT-Q6H PRN puff 07/02/17 Inhaler] Escitalopram [Lexapro] 20 mg PO DAILY #30 tab 07/02/17 Gabapentin [Neurontin] 600 mg PO TID #0 cap 07/02/17 Imipramine [Tofranil] 37.5 mg PO HS #45 tab 07/02/17 Doxycycline [Vibramycin] 100 mg PO BID 14 Days capsule 06/06/18 Allergies Allergy/AdvReac Type Severity Reaction Status Date / Time amphetamine aspartate Allergy SEIZURES Verified 06/05/18 21:22 [From Adderall] amphetamine sulfate Allergy SEIZURES Verified 06/05/18 21:22 [From Adderall] dextroamphetamine saccharate Allergy SEIZURES Verified 06/05/18 21:22 [From Adderall] dextroamphetamine sulfate Allergy SEIZURES Verified 06/05/18 21:22 [From Adderall] lamotrigine [From Lamictal] Allergy SEIZURE Verified 06/05/18 21:22 tramadol Allergy "FELT LIKE Verified 06/05/18 21:22 I WAS GOING TO HAVE A SEIZURE" morphine AdvReac Severe Nausea & Verified 06/05/18 21:22 Vomiting latex AdvReac Mild Dry Verified 06/05/18 21:22 Cracked Skin/RASH Review of Systems ROS Statement: Those systems with pertinent positive or pertinent negative responses have been documented in the HPI. ROS Other: All systems not noted in ROS Statement are negative. 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, LILIANA- non compliant with CPAP, Overactive bladder History of Any Multi-Drug Resistant Organisms: None Reported Past Surgical History: Adenoidectomy, Breast Surgery, Tonsillectomy, Tubal Ligation Additional Past Surgical History / Comment(s): tubes in ears, breast reduction, colonoscopy/EGD- multiple, incision and drainage of wound rt anticubital, hx alcholism Past Anesthesia/Blood Transfusion Reactions: Previous Problems w/ Anesthesia, Family History of Problems w/ Anesthesia, Motion Sickness, Postoperative Nausea & Vomiting (PONV) Additional Past Anesthesia/Blood Transfusion Reaction / Comment(s): states mother had coded during surgery Past Psychological History: Anxiety, Bipolar, Depression, PTSD Smoking Status: Current every day smoker Past Alcohol Use History: None Reported Past Drug Use History: Marijuana, Prescription Drug Abuse - Past Family History Father Family Medical History: Asthma Additional Family Medical History / Comment(s): Dad is 55 years of age. He also has history of ulcerative colitis. Mother Family Medical History: Rheumatoid Arthritis (RA), Thyroid Disorder Additional Family Medical History / Comment(s): Mother is 47 years of age, Atul's thyroiditis General Exam Limitations: no limitations General appearance: alert, in no apparent distress Head exam: Present: atraumatic, normocephalic, normal inspection Eye exam: Present: normal appearance, PERRL, EOMI. Absent: scleral icterus, conjunctival injection, periorbital swelling ENT exam: Present: normal exam, mucous membranes moist Neck exam: Present: normal inspection, full ROM. Absent: tenderness, meningismus, lymphadenopathy Respiratory exam: Present: normal lung sounds bilaterally. Absent: respiratory distress, wheezes, rales, rhonchi, stridor Cardiovascular Exam: Present: regular rate, normal rhythm, normal heart sounds. Absent: systolic murmur, diastolic murmur, rubs, gallop, clicks GI/Abdominal exam: Present: soft, normal bowel sounds. Absent: distended, tenderness, guarding, rebound, rigid External exam: Present: erythema (minimal erythema noted to vaginal os). Absent : swelling, lacerations (no lacerations) Speculum exam: Present: vaginal discharge (mild white purulent discharge, no cottage cheese discharge, no foul smelling discharge), other (edema noted of vaginal canal). Absent: normal speculum exam By manual exam: Present: uterine tenderness (minimal uterine tenderness) Back exam: Absent: CVA tenderness (R), CVA tenderness (L) Neurological exam: Present: alert, oriented X3 Psychiatric exam: Present: normal affect, normal mood Course Vital Signs 06/05/18 06/05/18 06/06/18 19:32 22:57 00:21 Temperature 98.2 F 97.8 F Pulse Rate 94 99 99 Respiratory 16 18 18 Rate Blood Pressure 137/81 128/69 137/84 O2 Sat by Pulse 100 100 99 Oximetry Medical Decision Making - Medical Decision Making 33-year-old female presents to the emergency determine for chief related to vaginal pain times one day. Patient states it is a burning and sharp pain in consistency. Denies any concerns for STDs. External exam is unremarkable. No edema noted of the tibia, no Bartholin's cyst. Speculum exam did reveal mild edema of the vaginal canal with some uterine tenderness. CBC shows a white count of 11, likely reactive. TMP unremarkable. Urine shows likely contaminated, culture sent. Trichomonas negative. Gonorrhea and chlamydia pending at this time. Transvaginal ultrasound demonstrates no adverse changes. At this time patient will be treated empirically for gonorrhea and Chlamydia and will follow up with her [employer] or primary care. Patient's pain has greatly improved on discharge. Stating she is ready to go home. Vitals within acceptable limits. Patient aware to return to the emergency Department if she has any worsening symptoms. - Lab Data Result diagrams: 06/05/18 21:27 06/05/18 21:27 Lab Results 06/05/18 06/05/18 06/05/18 Range/Units 21:27 21:27 21: WBC 11.8 H (3.8-10.6) k/uL RBC 4.79 (3.80-5.40) m/uL Hgb 15.3 (11.4-16.0) gm/dL Hct 44.7 (34.0-46.0) % MCV 93.4 (80.0-100.0) fL MCH 31.9 (25.0-35.0) pg MCHC 34.1 (31.0-37.0) g/dL RDW 12.8 (11.5-15.5) % Plt Count 376 (150-450) k/uL Neutrophils % 56 % Lymphocytes % 35 % Monocytes % 6 % Eosinophils % 1 % Basophils % 1 % Neutrophils # 6.5 (1.3-7.7) k/uL Lymphocytes # 4.1 (1.0-4.8) k/uL Monocytes # 0.7 (0-1.0) k/uL Eosinophils # 0.1 (0-0.7) k/uL Basophils # 0.1 (0-0.2) k/uL Sodium 138 (137-145) mmol/L Potassium 3.9 (3.5-5.1) mmol/L Chloride 104 (98-107) mmol/L Carbon Dioxide 22 (22-30) mmol/L Anion Gap 12 mmol/L BUN 15 (7-17) mg/dL Creatinine 0.75 (0.52-1.04) mg/dL Est GFR (CKD-EPI)AfAm >90 (>60 ml/min/1.73 sqM) Est GFR (CKD-EPI)NonAf >90 (>60 ml/min/1.73 sqM) Glucose 105 H (74-99) mg/dL Calcium 10.6 H (8.4-10.2) mg/dL Total Bilirubin 0.8 (0.2-1.3) mg/dL AST 30 (14-36) U/L ALT 29 (9-52) U/L Alkaline Phosphatase 94 (38-126) U/L Total Protein 7.7 (6.3-8.2) g/dL Albumin 4.6 (3.5-5.0) g/dL Urine Color Urine Appearance (Clear) Urine pH (5.0-8.0) Ur Specific [place] (1.001-1.035) Urine Protein (Negative) Urine Glucose (UA) (Negative) Urine Ketones (Negative) Urine Blood (Negative) Urine Nitrite (Negative) Urine Bilirubin (Negative) Urine Urobilinogen (<2.0) mg/dL Ur Leukocyte Esterase (Negative) Urine RBC (0-5) /hpf Urine WBC (0-5) /hpf Ur Squamous Epith Cells (0-4) /hpf Urine Mucus (None) /hpf Urine HCG, Qual (Not Detectd) Trichomonas Ag (Rapid) Negative (Negative) 06/05/18 06/05/18 Range/Units 21:27 21:27 WBC (3.8-10.6) k/uL RBC (3.80-5.40) m/uL Hgb (11.4-16.0) gm/dL Hct (34.0-46.0) % MCV (80.0-100.0) fL MCH (25.0-35.0) pg MCHC (31.0-37.0) g/dL RDW (11.5-15.5) % Plt Count (150-450) k/uL Neutrophils % % Lymphocytes % % Monocytes % % Eosinophils % % Basophils % % Neutrophils # (1.3-7.7) k/uL Lymphocytes # (1.0-4.8) k/uL Monocytes # (0-1.0) k/uL Eosinophils # (0-0.7) k/uL Basophils # (0-0.2) k/uL Sodium (137-145) mmol/L Potassium (3.5-5.1) mmol/L Chloride (98-107) mmol/L Carbon Dioxide (22-30) mmol/L Anion Gap mmol/L BUN (7-17) mg/dL Creatinine (0.52-1.04) mg/dL Est GFR (CKD-EPI)AfAm (>60 ml/min/1.73 sqM) Est GFR (CKD-EPI)NonAf (>60 ml/min/1.73 sqM) Glucose (74-99) mg/dL Calcium (8.4-10.2) mg/dL Total Bilirubin (0.2-1.3) mg/dL AST (14-36) U/L ALT (9-52) U/L Alkaline Phosphatase (38-126) U/L Total Protein (6.3-8.2) g/dL Albumin (3.5-5.0) g/dL Urine Color Yellow Urine Appearance Cloudy H (Clear) Urine pH 6.5 (5.0-8.0) Ur Specific [place] 1.021 (1.001-1.035) Urine Protein 1+ H (Negative) Urine Glucose (UA) Negative (Negative) Urine Ketones 2+ H (Negative) Urine Blood Small H (Negative) Urine Nitrite Negative (Negative) Urine Bilirubin 1+ H (Negative) Urine Urobilinogen 6.0 (<2.0) mg/dL Ur Leukocyte Esterase Large H (Negative) Urine RBC 13 H (0-5) /hpf Urine WBC 18 H (0-5) /hpf Ur Squamous Epith Cells 36 H (0-4) /hpf Urine Mucus Many H (None) /hpf Urine HCG, Qual Not Detected (Not Detectd) Trichomonas Ag (Rapid) (Negative) Disposition Clinical Impression: Vaginal pain Disposition: HOME SELF-CARE Condition: Good Instructions: Sexually Transmitted Diseases (ED), Vaginitis (ED) Additional Instructions: Take antibiotics as directed. Do not get while taking antibiotics. Do not have sex until you see your primary care provider with results on gonorrhea and chlamydia. Return if you have any worsening symptoms. Prescriptions: Doxycycline [Vibramycin] 100 mg PO BID 14 Days capsule Is patient prescribed a controlled substance at d/c from ED?: No Referrals: Donna Reid MD [Primary Care Provider] - 1-2 days Time of Disposition: 00:03
[2018-06-05 21:49] LABS: Basophils # (A) 0.1 k/uL (0-0.2); Basophils % (A) 1 %; Eosinophils # (A) 0.1 k/uL (0-0.7); Eosinophils % (A) 1 %; HCT 44.7 % (34.0-46.0); HGB 15.3 gm/dL (11.4-16.0); Lymphocytes # (A) 4.1 k/uL (1.0-4.8); Lymphocytes % (A) 35 %; MCH 31.9 pg (25.0-35.0); MCHC 34.1 g/dL (31.0-37.0); MCV 93.4 fL (80.0-100.0); Mean Platelet Volume 7.1; Monocytes # (A) 0.7 k/uL (0-1.0); Monocytes % (A) 6 %; Neutrophils # (A) 6.5 k/uL (1.3-7.7); Neutrophils % (A) 56 %; Platelet Count 376 k/uL (150-450); RBC 4.79 m/uL (3.80-5.40); RDW 12.8 % (11.5-15.5); WBC 11.8 k/uL (3.8-10.6)
[2018-06-05 21:54] LABS: Appearance,Urine Cloudy (Clear); Bilirubin,Urine 1+ (Negative); Blood,Urine Small (Negative); Color,Urine Yellow; Glucose,Urine (UA) Negative (Negative); Ketones,Urine 2+ (Negative); Leukocyte Esterase,Urine Large (Negative); Mucus,Urine Many /hpf; Nitrite,Urine Negative (Negative); PH, Urine 6.5 (5.0-8.0); Protein,Urine 1+ (Negative); RBC,Urine 13 /hpf (0-5); Specific Gravity,Urine 1.021 (1.001-1.035); Squamous Epithelial Cell,Urine 36 /hpf (0-4); WBC,Urine 18 /hpf (0-5)
[2018-06-05 21:57] LABS: ALT 29 U/L (9-52); AST 30 U/L (14-36); Albumin 4.6 g/dL (3.5-5.0); Alkaline Phosphatase 94 U/L (38-126); Anion Gap 12 mmol/L; Blood Urea Nitrogen 15 mg/dL (7-17); Calcium 10.6 mg/dL (8.4-10.2); Carbon Dioxide 22 mmol/L (22-30); Chloride 104 mmol/L (98-107); Glucose 105 mg/dL (74-99); Sodium 138 mmol/L (137-145); Total Bilirubin 0.8 mg/dL (0.2-1.3); Total Protein 7.7 g/dL (6.3-8.2)
[2018-06-05 22:08] LABS: Potassium 3.9 mmol/L (3.5-5.1)
--- NOTE | 2018-06-05 22:46 | US ---
EXAMINATION TYPE: US transvaginal DATE OF EXAM: 06/05/2018 COMPARISON: 08/18/2014 CLINICAL HISTORY: pain. Pain TECHNIQUE: Transvaginal (TV). EXAM MEASUREMENTS: Uterus: 8.3 x 3.7 x 3.7 cm Endometrial Stripe: 0.8 cm 1. Uterus: Anteverted wnl 2. Endometrium: wnl 3. Right Ovary: Obscured by overlying bowel gas 4. Left Ovary: Obscured by overlying bowel gas 5. Bilateral Adnexa: wnl 6. Posterior cul-de-sac: wnl IMPRESSION: Negative transvaginal pelvic sonogram. No adnexal mass or free fluid. Normal uterus and e ndometrium. Ovaries not seen. No adverse change compared to old exam.
[2018-06-05 22:59] VITALS: PULSE 99; RESP 18
[2018-06-05] MEDS ORDERED: cefTRIAXone 250 MG VIAL IM STA (23:58)
[2018-06-05] MEDS ORDERED: DOXYCYCLINE 100 MG CAP PO STA (23:59)
[2018-06-06] MEDS ORDERED: HYDROmorphone 0.5 MG/0.5 ML SYRINGE IVP STA (00:01)
[2018-06-06 00:22] VITALS: BP 137/84; TEMP 97.8
[2018-06-08 08:50] LABS: C. trachomatis,PCR Negative (Neg,Equiv); Chlamydia trachomatis Source Vagina; N. gonorrhoeae,PCR Negative (Neg,Equiv); Neisseria Source Vagina
== END 2018-06-06 00:28 | disposition home or self-care (01) ==
LOC: EC 18:48
DX: R10.2 Pelvic and perineal pain (principal); N89.8 Other specified noninflammatory disorders of vagina; K21.9 Gastro-esophageal reflux disease without esophagitis; K58.9 Irritable bowel syndrome, unspecified; G47.33 Obstructive sleep apnea (adult) (pediatric); Z99.89 Dependence on other enabling machines and devices; N32.81 Overactive bladder; F31.9 Bipolar disorder, unspecified; F43.10 Post-traumatic stress disorder, unspecified; F41.9 Anxiety disorder, unspecified; Z86.19 Personal history of other infectious and parasitic diseases; F17.200 Nicotine dependence, unspecified, uncomplicated; Z79.899 Other long term (current) drug therapy; Z88.5 Allergy status to narcotic agent; Z88.8 Allergy status to other drugs, medicaments and biological substances; Z91.040 Latex allergy status; Z98.51 Tubal ligation status
CPT/HCPCS: 99284; 96374; 96375; 96361; 96372; 36415; 80053; 85025; 81001; 81025; 87040; 87808; 87491; 87591; 87070; 87205; 76830; J0696; J1885; J1170

== ENCOUNTER 2018-11-21 12:21 | Emergency (ER) | payer MEDICARE, OTHER ==
[2018-11-21 12:32] VITALS: RESP 18
[2018-11-21] MEDS ORDERED: IBUPROFEN 600 MG TAB PO STA (14:35)
[2018-11-21] MEDS ORDERED: diphenhydrAMINE 25 MG CAP PO STA (14:35)
--- NOTE | 2018-11-21 14:42 | ED ---
General Adult HPI - General Chief complaint: Skin/Abscess/Foreign Body Stated complaint: rash Time Seen by Provider: 11/21/18 12:56 Source: patient, EMS, RN notes reviewed Mode of arrival: EMS Limitations: no limitations - History of Present Illness Initial comments: 33-year-old female with a past medical history of hepatitis C, treated as well as IV drug abuse and MRSA presents to the emergency determine for rash rates this rash has been ongoing for 4 days. Patient states the rashes on her buttock and is on her face as well. States it has remained about the same for 4 days. States it is very burning and painful in nature. Denies any drainage from the site. Patient states she does have history of MRSA from an intravenous injection in the left antecubital area. Denies fevers or chills. Patient has no other complaints at this time including shortness of breath, chest pain, abdominal pain, nausea or vomiting, headache, or visual changes. - Related Data Home Medications Medication Instructions Recorded Confirmed ALPRAZolam [Xanax] 0.5 mg PO BID PRN 11/14/17 06/05/18 OLANZapine [ZyPREXA] 7.5 mg PO BID 11/14/17 06/05/18 cloNIDine HCL [Catapres] 0.1 mg PO HS 11/14/17 06/05/18 Losartan [Cozaar] 25 mg PO DAILY 02/21/18 06/05/18 Omeprazole 40 mg PO BID 02/21/18 06/05/18 Ondansetron HCl [Zofran] 4 mg PO TID PRN 02/21/18 06/05/18 Oxybutynin Chloride 5 mg PO TID 02/21/18 06/05/18 Sucralfate [Carafate] 1 gm PO AC-BID 02/21/18 06/05/18 Previous Rx's Medication Instructions Recorded Albuterol Inhaler [Ventolin Hfa 2 puff INHALATION RT-Q6H PRN puff 07/02/17 Inhaler] Escitalopram [Lexapro] 20 mg PO DAILY #30 tab 07/02/17 Gabapentin [Neurontin] 600 mg PO TID #0 cap 07/02/17 Imipramine [Tofranil] 37.5 mg PO HS #45 tab 07/02/17 Doxycycline [Vibramycin] 100 mg PO BID 14 Days capsule 06/06/18 Cephalexin [Keflex] 500 mg PO Q12HR #28 cap 11/21/18 Ibuprofen [Motrin] 400 mg PO Q8HR PRN #15 tab 11/21/18 Sulfamethox-Tmp 800-160Mg [Bactrim 2 tab PO Q12HR 14 Days #56 tab 11/21/18 DS 800-160 mg] diphenhydrAMINE HCL [Benadryl] 25 mg PO QID PRN #20 tab 11/21/18 Allergies Allergy/AdvReac Type Severity Reaction Status Date / Time amphetamine aspartate Allergy SEIZURES Verified 11/21/18 12:32 [From Adderall] amphetamine sulfate Allergy SEIZURES Verified 11/21/18 12:32 [From Adderall] dextroamphetamine saccharate Allergy SEIZURES Verified 11/21/18 12:32 [From Adderall] dextroamphetamine sulfate Allergy SEIZURES Verified 11/21/18 12:32 [From Adderall] lamotrigine [From Lamictal] Allergy SEIZURE Verified 11/21/18 12:32 tramadol Allergy "FELT LIKE Verified 11/21/18 12:32 I WAS GOING TO HAVE A SEIZURE" morphine AdvReac Severe Nausea & Verified 11/21/18 12:32 Vomiting latex AdvReac Mild Dry Verified 11/21/18 12:32 Cracked Skin/RASH Review of Systems ROS Statement: Those systems with pertinent positive or pertinent negative responses have been documented in the HPI. ROS Other: All systems not noted in ROS Statement are negative. 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, LILIANA- non compliant with CPAP, Overactive bladder History of Any Multi-Drug Resistant Organisms: None Reported Past Surgical History: Adenoidectomy, Breast Surgery, Tonsillectomy, Tubal Ligation Additional Past Surgical History / Comment(s): tubes in ears, breast reduction, colonoscopy/EGD- multiple, incision and drainage of wound rt anticubital, hx alcholism Past Anesthesia/Blood Transfusion Reactions: Previous Problems w/ Anesthesia, Family History of Problems w/ Anesthesia, Motion Sickness, Postoperative Nausea & Vomiting (PONV) Additional Past Anesthesia/Blood Transfusion Reaction / Comment(s): states mother had coded during surgery Past Psychological History: Anxiety, Bipolar, Depression, PTSD Smoking Status: Current every day smoker Past Alcohol Use History: Occasional Past Drug Use History: Marijuana, Prescription Drug Abuse - Past Family History Father Family Medical History: Asthma Additional Family Medical History / Comment(s): Dad is 55 years of age. He also has history of ulcerative colitis. Mother Family Medical History: Rheumatoid Arthritis (RA), Thyroid Disorder Additional Family Medical History / Comment(s): Mother is 47 years of age, Atul's thyroiditis General Exam Limitations: no limitations General appearance: alert, in no apparent distress Head exam: Present: atraumatic, normocephalic, normal inspection Eye exam: Present: normal appearance, PERRL, EOMI. Absent: scleral icterus, conjunctival injection, periorbital swelling ENT exam: Present: normal exam, mucous membranes moist Neck exam: Present: normal inspection, full ROM. Absent: tenderness, meningismus, lymphadenopathy Respiratory exam: Present: normal lung sounds bilaterally. Absent: respiratory distress, wheezes, rales, rhonchi, stridor Cardiovascular Exam: Present: regular rate, normal rhythm, normal heart sounds. Absent: systolic murmur, diastolic murmur, rubs, gallop, clicks GI/Abdominal exam: Present: soft, normal bowel sounds. Absent: distended, tenderness, guarding, rebound, rigid Neurological exam: Present: alert, oriented X3, CN II-XII intact Psychiatric exam: Present: normal affect, normal mood Skin exam: Present: other (Patient has multiple ulcerative lesions about 2 cm x 2 cm and 1 cm x 1 cm noted over the buttock. She has about 4 noted over the face. No abscesses or. Material. No evidence of cellulitic at this time.) Course Vital Signs 11/21/18 12:26 Temperature 99.3 F Pulse Rate 97 Respiratory 18 Rate Blood Pressure 132/92 O2 Sat by Pulse 98 Oximetry Medical Decision Making - Medical Decision Making 33-year-old female with a past medical history of IV drug abuse, MRSA presents for rash. Patient has ulcerative rash noted over her buttock as well as face. These are crusted over and are not open. No evidence of cellulitis. No abscesses or purulent material. No area for drainage. Patient was also examined by Dr. Ramírez. At this point patient likely has an MRSA infection. Patient will be treated with Bactrim. Discussed returning here if she has any worsening symptoms, symptoms are not improving or develops diarrhea as we are g iving her many antibiotics. Discussed following up with dermatology as well as primary care in 1-2 days. Disposition Clinical Impression: Rash, History of MRSA infection Disposition: HOME SELF-CARE Condition: Good Instructions (If sedation given, give patient instructions): MRSA (Methicillin- Resistant Staphylococcus Aureus) (ED), Abscess (ED) Additional Instructions: Based take antibiotics as directed. Take Motrin and Tylenol for pain. Take Benadryl for itching. If symptoms are not improving in the next few days return to the emergency department. Follow-up with dermatology as well as primary care in 1-2 days. Prescriptions: Sulfamethox-Tmp 800-160Mg [Bactrim DS 800-160 mg] 2 tab PO Q12HR 14 Days #56 tab diphenhydrAMINE HCL [Benadryl] 25 mg PO QID PRN #20 tab PRN Reason: Itching Cephalexin [Keflex] 500 mg PO Q12HR #28 cap Ibuprofen [Motrin] 400 mg PO Q8HR PRN #15 tab PRN Reason: Pain Is patient prescribed a controlled substance at d/c from ED?: No Referrals: Donna Reid MD [Primary Care Provider] - 1-2 days Bhavna Lynn MD [STAFF PHYSICIAN] - 1-2 days Yazan Rivera MD [STAFF PHYSICIAN] - 1-2 days Time of Disposition: 14:32
[2018-11-21 15:07] VITALS: BP 111/72; PULSE 98; TEMP 97
== END 2018-11-21 15:16 | disposition home or self-care (01) ==
LOC: EC 12:21
DX: R21 Rash and other nonspecific skin eruption (principal); K21.9 Gastro-esophageal reflux disease without esophagitis; F31.9 Bipolar disorder, unspecified; F17.200 Nicotine dependence, unspecified, uncomplicated; G47.33 Obstructive sleep apnea (adult) (pediatric); Z99.89 Dependence on other enabling machines and devices; Z86.14 Personal history of Methicillin resistant Staphylococcus aureus infection; Z79.899 Other long term (current) drug therapy; Z88.8 Allergy status to other drugs, medicaments and biological substances; Z88.5 Allergy status to narcotic agent; Z91.040 Latex allergy status
CPT/HCPCS: 99283

== ENCOUNTER 2018-12-06 21:42 | Emergency (ER) | payer MEDICARE, OTHER ==
[2018-12-06 22:16] VITALS: RESP 18
--- NOTE | 2018-12-06 22:51 | ED ---
General Adult HPI - General Chief complaint: Overdose Stated complaint: Overdose Time Seen by Provider: 12/06/18 22:12 Source: patient, EMS Mode of arrival: ambulatory Limitations: no limitations - History of Present Illness Initial comments: Dictation was produced using [employer] dictation software. please excuse any grammatical, word or spelling errors. Chief Complaint: 33-year-old female brought in by EMS for sleepiness. History of Present Illness: 33-year-old female patient has a history of illicit drug abuse. She is brought in by EMS. EMS was called by patient's significant other. Patient allegedly took a Klonopin pill while drinking EtOH condition she wanted to fall asleep. Patient denies any suicidal or homicidal ideation. Patient denies any auditory or visual hallucinations. He was cooperative with EMS. Patient unable to provide time of ingestion however she adamantly denies any ingestion of Tylenol or salicylate or any other medication. The ROS documented in this emergency department record has been reviewed and confirmed by me. Those systems with pertinent positive or negative responses have been documented in the HPI. All other systems are other negative and/or noncontributory. PHYSICAL EXAM: General Impression: Alert and oriented x3, not in acute distress, sleepy HEENT: Normocephalic atraumatic, extra-ocular movements intact, pupils equal and reactive to light bilaterally, mucous membranes moist. Cardiovascular: Heart regular rate and rhythm, S1&S2 audible, no murmurs, rubs or gallops Chest: Lungs clear to auscultation bilaterally, no rhonchi, no wheeze, no rales Abdomen: Bowel sounds present, abdomen soft, non-tender, non-distended, no organomegaly Musculoskeletal: Pulses present and equal in all extremities, no peripheral edema Motor: no focal deficits noted Neurological: CN II-XII grossly intact, no focal motor or sensory deficits noted Skin: Intact with no visualized rashes Psych: Normal affect and mood ED course: 33 yo female presents with sleepiness. Patient did take Klonopin while drinking EtOH today. Vital signs upon arrival are within acceptable limits. Patient was observed in the emergency department for several hours. She is reevaluated and found to be stable medical condition. Patient is awake alert and oriented. Patient feels well has no complaints. Denies any suicidal or homicidal ideation. Patient clear for discharge. Labs are unremarkable. Return parameters discussed. Clinical presentation consistent with benzodiazepine intoxication. - Related Data Home Medications Medication Instructions Recorded Confirmed ALPRAZolam [Xanax] 0.5 mg PO BID PRN 11/14/17 06/05/18 OLANZapine [ZyPREXA] 7.5 mg PO BID 11/14/17 06/05/18 cloNIDine HCL [Catapres] 0.1 mg PO HS 11/14/17 06/05/18 Losartan [Cozaar] 25 mg PO DAILY 02/21/18 06/05/18 Omeprazole 40 mg PO BID 02/21/18 06/05/18 Ondansetron HCl [Zofran] 4 mg PO TID PRN 02/21/18 06/05/18 Oxybutynin Chloride 5 mg PO TID 02/21/18 06/05/18 Sucralfate [Carafate] 1 gm PO AC-BID 02/21/18 06/05/18 Previous Rx's Medication Instructions Recorded Albuterol Inhaler [Ventolin Hfa 2 puff INHALATION RT-Q6H PRN puff 07/02/17 Inhaler] Escitalopram [Lexapro] 20 mg PO DAILY #30 tab 07/02/17 Gabapentin [Neurontin] 600 mg PO TID #0 cap 07/02/17 Imipramine [Tofranil] 37.5 mg PO HS #45 tab 07/02/17 Doxycycline [Vibramycin] 100 mg PO BID 14 Days capsule 06/06/18 Cephalexin [Keflex] 500 mg PO Q12HR #28 cap 11/21/18 Ibuprofen [Motrin] 400 mg PO Q8HR PRN #15 tab 11/21/18 Mupirocin Calcium 2% Cream 1 applic TOPICAL TID 14 Days gm 11/21/18 [Bactroban 2% Cream] Sulfamethox-Tmp 800-160Mg [Bactrim 2 tab PO Q12HR 14 Days #56 tab 11/21/18 DS 800-160 mg] diphenhydrAMINE HCL [Benadryl] 25 mg PO QID PRN #20 tab 11/21/18 Allergies Allergy/AdvReac Type Severity Reaction Status Date / Time amphetamine aspartate Allergy SEIZURES Verified 12/06/18 22:16 [From Adderall] amphetamine sulfate Allergy SEIZURES Verified 12/06/18 22:16 [From Adderall] dextroamphetamine saccharate Allergy SEIZURES Verified 12/06/18 22:16 [From Adderall] dextroamphetamine sulfate Allergy SEIZURES Verified 12/06/18 22:16 [From Adderall] lamotrigine [From Lamictal] Allergy SEIZURE Verified 12/06/18 22:16 tramadol Allergy "FELT LIKE Verified 12/06/18 22:16 I WAS GOING TO HAVE A SEIZURE" morphine AdvReac Severe Nausea & Verified 12/06/18 22:16 Vomiting latex AdvReac Mild Dry Verified 12/06/18 22:16 Cracked Skin/RASH Review of Systems ROS Statement: Those systems with pertinent positive or pertinent negative responses have been documented in the HPI. ROS Other: All systems not noted in ROS Statement are negative. 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, LILIANA- non compliant with CPAP, Overactive bladder History of Any Multi-Drug Resistant Organisms: None Reported Past Surgical History: Adenoidectomy, Breast Surgery, Tonsillectomy, Tubal Ligation Additional Past Surgical History / Comment(s): tubes in ears, breast reduction, colonoscopy/EGD- multiple, incision and drainage of wound rt anticubital, hx alcholism Past Anesthesia/Blood Transfusion Reactions: Previous Problems w/ Anesthesia, Family History of Problems w/ Anesthesia, Motion Sickness, Postoperative Nausea & Vomiting (PONV) Additional Past Anesthesia/Blood Transfusion Reaction / Comment(s): states mother had coded during surgery Past Psychological History: Anxiety, Bipolar, Depression, PTSD Smoking Status: Current every day smoker Past Alcohol Use History: Occasional Past Drug Use History: Marijuana, Prescription Drug Abuse - Past Family History Father Family Medical History: Asthma Additional Family Medical History / Comment(s): Dad is 55 years of age. He also has history of ulcerative colitis. Mother Family Medical History: Rheumatoid Arthritis (RA), Thyroid Disorder Additional Family Medical History / Comment(s): Mother is 47 years of age, Atul's thyroiditis General Exam Limitations: no limitations Course Vital Signs 12/06/18 12/06/18 22:05 23:10 Temperature 98.1 F Pulse Rate 91 73 Respiratory 18 18 Rate Blood Pressure 118/77 115/78 O2 Sat by Pulse 98 99 Oximetry Medical Decision Making - Lab Data Result diagrams: 12/06/18 22:30 Lab Results 12/06/18 12/06/18 12/06/18 Range/Units 22:30 23:00 23:00 Sodium 138 (137-145) mmol/L Potassium 3.5 (3.5-5.1) mmol/L Chloride 104 (98-107) mmol/L Carbon Dioxide 21 L (22-30) mmol/L Anion Gap 13 mmol/L BUN 22 H (7-17) mg/dL Creatinine 0.65 (0.52-1.04) mg/dL Est GFR (CKD-EPI)AfAm >90 (>60 ml/min/1.73 sqM) Est GFR (CKD-EPI)NonAf >90 (>60 ml/min/1.73 sqM) Glucose 90 (74-99) mg/dL Calcium 9.7 (8.4-10.2) mg/dL Urine HCG, Qual Not Detected (Not Detectd) Salicylates <1.0 mg/dL Urine Opiates Screen (NotDetected) Ur Oxycodone Screen (NotDetected) Urine Methadone Screen (NotDetected) Ur Propoxyphene Screen (NotDetected) Acetaminophen <10.0 ug/mL Ur Barbiturates Screen (NotDetected) U Tricyclic Antidepress (NotDetected) Ur Phencyclidine Scrn (NotDetected) Ur Amphetamines Screen (NotDetected) U Methamphetamines Scrn (NotDetected) U Benzodiazepines Scrn (NotDetected) Urine Cocaine Screen (NotDetected) U Marijuana (THC) Screen (NotDetected) Serum Alcohol 29 mg/dL 12/06/18 Range/Units 23:00 Sodium (137-145) mmol/L Potassium (3.5-5.1) mmol/L Chloride (98-107) mmol/L Carbon Dioxide (22-30) mmol/L Anion Gap mmol/L BUN (7-17) mg/dL Creatinine (0.52-1.04) mg/dL Est GFR (CKD-EPI)AfAm (>60 ml/min/1.73 sqM) Est GFR (CKD-EPI)NonAf (>60 ml/min/1.73 sqM) Glucose (74-99) mg/dL Calcium (8.4-10.2) mg/dL Urine HCG, Qual (Not Detectd) Salicylates mg/dL Urine Opiates Screen Not Detected (NotDetected) Ur Oxycodone Screen Not Detected (NotDetected) Urine Methadone Screen Not Detected (NotDetected) Ur Propoxyphene Screen Not Detected (NotDetected) Acetaminophen ug/mL Ur Barbiturates Screen Not Detected (NotDetected) U Tricyclic Antidepress Not Detected (NotDetected) Ur Phencyclidine Scrn Not Detected (NotDetected) Ur Amphetamines Screen Detected H (NotDetected) U Methamphetamines Scrn Detected H (NotDetected) U Benzodiazepines Scrn Detected H (NotDetected) Urine Cocaine Screen Not Detected (NotDetected) U Marijuana (THC) Screen Detected H (NotDetected) Serum Alcohol mg/dL Disposition Clinical Impression: Benzodiazepine intoxication Disposition: HOME SELF-CARE Condition: Good Is patient prescribed a controlled substance at d/c from ED?: No Referrals: Donna Reid MD [Primary Care Provider] - 1-2 days Time of Disposition: 01:12
[2018-12-06 23:09] LABS: Acetaminophen <10.0 ug/mL; African American GFR (CKD) >90 (>60 ml/min/1.73 sqM); Anion Gap 13 mmol/L; Blood Urea Nitrogen 22 mg/dL (7-17); Calcium 9.7 mg/dL (8.4-10.2); Carbon Dioxide 21 mmol/L (22-30); Chloride 104 mmol/L (98-107); Glucose 90 mg/dL (74-99); Potassium 3.5 mmol/L (3.5-5.1); Salicylate <1.0 mg/dL; Sodium 138 mmol/L (137-145)
[2018-12-06 23:53] LABS: Amphetamine Screen,Urine Detected (NotDetected); Barbiturate Screen,Urine Not Detected (NotDetected); Benzodiazepines Screen,Urine Detected (NotDetected); Cocaine Screen,Urine Not Detected (NotDetected); Methadone Screen, Urine Not Detected (NotDetected); Opiate Screen,Urine Not Detected (NotDetected); Oxycodone Screen, Urine Not Detected (NotDetected); Phencyclidine Screen,Urine Not Detected (NotDetected); Tricyclic Antidepressant,Urine Not Detected (NotDetected); Urn Cannabinoid Scrn Detected (NotDetected)
[2018-12-07 01:53] VITALS: BP 116/85; PULSE 75; TEMP 98
== END 2018-12-07 02:07 | disposition home or self-care (01) ==
LOC: EC 21:42
DX: T42.4X5A Adverse effect of benzodiazepines, initial encounter (principal); K21.9 Gastro-esophageal reflux disease without esophagitis; G47.33 Obstructive sleep apnea (adult) (pediatric); Z99.89 Dependence on other enabling machines and devices; F31.9 Bipolar disorder, unspecified; F17.200 Nicotine dependence, unspecified, uncomplicated; Z79.899 Other long term (current) drug therapy; Z88.8 Allergy status to other drugs, medicaments and biological substances; Z88.5 Allergy status to narcotic agent; Z91.040 Latex allergy status
CPT/HCPCS: 36415; 80048; 81025; 80306; 83520; 99284; G0480 ×2; 80320; 80329

== ENCOUNTER → 2019-05-06 | Outpatient (CLI) | payer MEDICARE, OTHER ==
[2019-05-06 12:47] LABS: Basophils # (A) 0.1 k/uL (0-0.2); Basophils % (A) 1 %; Eosinophils # (A) 0.2 k/uL (0-0.7); Eosinophils % (A) 2 %; HCT 41.3 % (34.0-46.0); HGB 13.2 gm/dL (11.4-16.0); Lymphocytes # (A) 2.6 k/uL (1.0-4.8); Lymphocytes % (A) 31 %; MCH 30.6 pg (25.0-35.0); MCHC 32.1 g/dL (31.0-37.0); MCV 95.3 fL (80.0-100.0); Mean Platelet Volume 8.1; Monocytes # (A) 0.4 k/uL (0-1.0); Monocytes % (A) 5 %; Neutrophils # (A) 5.1 k/uL (1.3-7.7); Neutrophils % (A) 60 %; Platelet Count 289 k/uL (150-450); RBC 4.33 m/uL (3.80-5.40); RDW 14.1 % (11.5-15.5); WBC 8.5 k/uL (3.8-10.6)
[2019-05-06 18:38] LABS: African American GFR (CKD) 112.3 (60.0-200.0); Albumin 4.4 g/dL (3.80-4.90); Albumin/Globulin Ratio 2.59 (1.60-3.17); Anion Gap 4.5 mmol/L (4.00-12.00); BUN/Creat Ratio 18.75 Ratio (12.00-20.00); Calcium 9.3 mg/dL (8.7-10.3); Carbon Dioxide 25.5 mmol/L (21.6-31.8); Globulin 1.7 g/dL (1.6-3.3); Non-African American GFR(CKD) 96.9 (60.0-200.0); Potassium 4.3 mmol/L (3.5-5.5); Total Bilirubin 0.2 mg/dL (0.3-1.2); Total Protein 6.1 g/dL (6.2-8.2)
== END ==
LOC: LABWHC1 11:44
PROVIDERS: ATTEND Family Medicine
DX: M79.89 Other specified soft tissue disorders (principal); B35.1 Tinea unguium
CPT/HCPCS: 36415; 80053; 85025; 86038

== ENCOUNTER 2019-12-23 11:30 | Emergency (ER) | payer MEDICARE, OTHER ==
[2019-12-23] MEDS ORDERED: HYDROcodone/APAP 5-325MG 1 EACH TAB PO STA (12:41)
[2019-12-23] MEDS ORDERED: MUPIROCIN 2% OINT 22 GM TUBE TOPICAL STA (13:18)
[2019-12-23] MEDS ORDERED: SULFAMETHOX-TMP 800-160MG 1 EACH TAB PO STA (13:18)
[2019-12-23] MEDS ORDERED: SULFAMETH-TMP DS STARTER PACK 2 TAB BTL PO STA (13:18)
--- NOTE | 2019-12-23 14:05 | ED ---
General Adult HPI - General Chief complaint: Skin/Abscess/Foreign Body Stated complaint: Female /abscess Time Seen by Provider: 12/23/19 12:04 Source: patient, RN notes reviewed, old records reviewed Mode of arrival: ambulatory Limitations: no limitations - History of Present Illness Initial comments: 34-year-old female patient presents to ED with chief complaint of painful possible abscess right inguinal region has been ongoing for 1 week. Denies any systemic symptoms. Reports it is very painful and coulter. Reports that she feels as if she had really [place] dry skin there and then afterwards she developed a rash which became painful. Denies any chance of being . Systemic: Pt denies fatigue, fever/chills. Pt denies weakness, night sweats, weight loss. Neuro: Pt denies headache, visual disturbances, syncope or pre-syncope. HEENT: Pt denies ocular discharge or irritation, otalgia, rhinorrhea, pharyngitis or notable lymphadenopathy. Cardiopulmonary: Pt denies chest pain, SOB, heart palpitations, dyspnea on exertion. Abdominal/GI: Pt denies abdominal pain, n/v/d. : Pt denies dysuria, burning w/ urination, frequency/urgency. Denies new onset urinary or bowel incontinence. MSK: Pt denies myalgia, loss of strength or function in extremities. Neuro: Pt denies new onset weakness, paresthesias. - Related Data Home Medications Medication Instructions Recorded Confirmed ALPRAZolam [Xanax] 0.5 mg PO BID PRN 11/14/17 12/23/19 OLANZapine [ZyPREXA] 15 mg PO HS 11/14/17 12/23/19 cloNIDine HCL [Catapres] 0.1 mg PO HS 11/14/17 12/23/19 Omeprazole 40 mg PO BID 02/21/18 12/23/19 Ondansetron HCl [Zofran] 4 mg PO TID PRN 02/21/18 12/23/19 Sucralfate [Carafate] 1 gm PO AC-BID 02/21/18 12/23/19 Albuterol Inhaler [Ventolin Hfa 2 puff INHALATION Q4-6H PRN 12/23/19 12/23/19 Inhaler] Fluticasone/Salmeterol [Advair 1 puff INHALATION RT-BID 12/23/19 12/23/19 250-50 Diskus] Ibuprofen [Motrin] 400 mg PO DAILY PRN 12/23/19 12/23/19 Previous Rx's Medication Instructions Recorded Escitalopram [Lexapro] 20 mg PO DAILY #30 tab 07/02/17 Gabapentin [Neurontin] 600 mg PO TID #0 cap 07/02/17 Mupirocin 2% Oint [Bactroban 2% 1 applic TOPICAL TID 10 Days #1 12/23/19 Oint] tube Sulfamethox-Tmp 800-160Mg [Bactrim 1 tab PO Q12HR 10 Days #20 tab 12/23/19 DS 800-160 mg] Allergies Allergy/AdvReac Type Severity Reaction Status Date / Time amphetamine aspartate Allergy SEIZURES Verified 12/23/19 13:17 [From Adderall] amphetamine sulfate Allergy SEIZURES Verified 12/23/19 13:17 [From Adderall] dextroamphetamine saccharate Allergy SEIZURES Verified 12/23/19 13:17 [From Adderall] dextroamphetamine sulfate Allergy SEIZURES Verified 12/23/19 13:17 [From Adderall] lamotrigine [From Lamictal] Allergy SEIZURE Verified 12/23/19 13:17 tramadol Allergy "FELT LIKE Verified 12/23/19 13:17 I WAS GOING TO HAVE A SEIZURE" morphine AdvReac Severe Nausea & Verified 12/23/19 13:17 Vomiting latex AdvReac Mild Dry Verified 12/23/19 13:17 Cracked Skin/RASH Review of Systems ROS Statement: Those systems with pertinent positive or pertinent negative responses have been documented in the HPI. ROS Other: All systems not noted in ROS Statement are negative. 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, LILIANA- non compliant with CPAP, Overactive bladder History of Any Multi-Drug Resistant Organisms: None Reported Past Surgical History: Adenoidectomy, Breast Surgery, Tonsillectomy, Tubal Ligation Additional Past Surgical History / Comment(s): tubes in ears, breast reduction, colonoscopy/EGD- multiple, incision and drainage of wound rt anticubital, hx alcholism Past Anesthesia/Blood Transfusion Reactions: Previous Problems w/ Anesthesia, Family History of Problems w/ Anesthesia, Motion Sickness, Postoperative Nausea & Vomiting (PONV) Additional Past Anesthesia/Blood Transfusion Reaction / Comment(s): states mother had coded during surgery Past Psychological History: Anxiety, Bipolar, Depression, PTSD Smoking Status: Current every day smoker Past Alcohol Use History: Occasional Past Drug Use History: Marijuana, Prescription Drug Abuse - Past Family History Father Family Medical History: Asthma Additional Family Medical History / Comment(s): Dad is 55 years of age. He also has history of ulcerative colitis. Mother Family Medical History: Rheumatoid Arthritis (RA), Thyroid Disorder Additional Family Medical History / Comment(s): Mother is 47 years of age, Atul's thyroiditis General Exam - General Exam Comments Initial Comments: Constitutional: NAD, AOX3, Pt has pleasant affect. HEENT: NC/AT, trachea midline, neck supple. External ears appear normal, without discharge. Mucous membranes moist. EOM intact. There is no scleral icterus. No pallor noted. Cardiopulmonary: RRR, no murmurs, rubs or gallops, no JVD noted. Lungs CTAB in anterior and posterior purvis. No peripheral edema. Abdominal exam: Abdomen soft and non-distended. Abdomen non-tender to palpation in all 4 quadrants. Bowel sounds active in LLQ. No hepatosplenomegaly. No ecchymosis Neuro: CN II-XII grossly intact. No nuchal rigidity. No raccon eyes, no sauceda sign. MSK: Full active ROM in upper and lower extremities. Derm: 2 x 2 centimeter area of superficial skin breakdown with some clear discharge from it. No fluctuance. No surrounding cellulitis or skin changes. Mildly tender to palpation. Limitations: no limitations Course Vital Signs 12/23/19 11:58 Temperature 98.1 F Pulse Rate 95 Respiratory 18 Rate Blood Pressure 111/74 O2 Sat by Pulse 97 Oximetry Medical Decision Making - Medical Decision Making 34-year-old female patient presents ED chief complaint of possible abscess or inguinal region. Physical exam doesn't display what appears to be a superficial rash. There is a 2 x 2 centimeter area of superficial skin breakdown with some clear discharge from it. No fluctuance. No surrounding cellulitis or skin changes. Mildly tender to palpation. Culture was obtained. Patient be placed on topical antibiotics as well as systemic. Well follow up with primary care provider and return to ER if condition worsens. Case discussed the patient seen by Dr. Miller. Disposition Clinical Impression: Skin infection Disposition: HOME SELF-CARE Condition: Stable Instructions (If sedation given, give patient instructions): Cellulitis (ED) Additional Instructions: Take antibiotics as directed. Follow up with primary care provider tomorrow. Return to ER if condition worsens in any way. Prescriptions: Sulfamethox-Tmp 800-160Mg [Bactrim DS 800-160 mg] 1 tab PO Q12HR 10 Days #20 tab Mupirocin 2% Oint [Bactroban 2% Oint] 1 applic TOPICAL TID 10 Days #1 tube Is patient prescribed a controlled substance at d/c from ED?: No Referrals: Marshall Anderson [Primary Care Provider] - 1-2 days
[2019-12-23 14:30] VITALS: BP 132/78; PULSE 79; RESP 16; TEMP 97.8
== END 2019-12-23 14:29 | disposition home or self-care (01) ==
LOC: EC 11:30
DX: L08.9 Local infection of the skin and subcutaneous tissue, unspecified (principal); J45.909 Unspecified asthma, uncomplicated; G47.33 Obstructive sleep apnea (adult) (pediatric); K21.9 Gastro-esophageal reflux disease without esophagitis; M06.9 Rheumatoid arthritis, unspecified; F41.9 Anxiety disorder, unspecified; F31.9 Bipolar disorder, unspecified; F43.10 Post-traumatic stress disorder, unspecified; F17.200 Nicotine dependence, unspecified, uncomplicated; Z79.51 Long term (current) use of inhaled steroids; Z79.1 Long term (current) use of non-steroidal anti-inflammatories (NSAID); Z79.899 Other long term (current) drug therapy; Z88.5 Allergy status to narcotic agent; Z88.6 Allergy status to analgesic agent; Z88.8 Allergy status to other drugs, medicaments and biological substances; Z91.040 Latex allergy status; Z99.89 Dependence on other enabling machines and devices
CPT/HCPCS: 87070; 87205; 87252; 99283

== ENCOUNTER 2020-03-03 11:38 | Emergency (ER) | payer MEDICARE, OTHER ==
[2020-03-03 11:53] VITALS: RESP 18; TEMP 98.3
[2020-03-03] MEDS ORDERED: Acetaminophen-Codeine 300-30mg TAB PO STA (12:30)
[2020-03-03] MEDS ORDERED: MUPIROCIN 2% OINT 22 GM TUBE TOPICAL STA (12:30)
[2020-03-03] MEDS ORDERED: SULFAMETH-TMP DS STARTER PACK 2 TAB BTL PO STA (12:31)
[2020-03-03] MEDS ORDERED: BACITRACIN OINT 1 EACH PACKET TOPICAL ONE (12:36)
--- NOTE | 2020-03-03 12:51 | ED ---
General Adult HPI - General Chief complaint: Skin/Abscess/Foreign Body Stated complaint: possible MRSA Time Seen by Provider: 03/03/20 11:54 Source: patient, RN notes reviewed, old records reviewed Mode of arrival: ambulatory Limitations: no limitations - History of Present Illness Initial comments: Patient is a 35-year-old female who presents the emergency department today for evaluation with complaints of skin irritation for the past 4 days. She reports it started off with itching and blisterlike lesions over her abdomen. She reports that she scratched it wrong. She states that she put vaginosis over the area yesterday which helped with some burning pain. Patient states that she has had no other areas recur. Patient states that she's had history of MRSA in the past. She denies any fever or chills. - Related Data Home Medications Medication Instructions Recorded Confirmed ALPRAZolam [Xanax] 0.5 mg PO BID PRN 11/14/17 12/23/19 OLANZapine [ZyPREXA] 15 mg PO HS 11/14/17 12/23/19 cloNIDine HCL [Catapres] 0.1 mg PO HS 11/14/17 12/23/19 Omeprazole 40 mg PO BID 02/21/18 12/23/19 Ondansetron HCl [Zofran] 4 mg PO TID PRN 02/21/18 12/23/19 Sucralfate [Carafate] 1 gm PO AC-BID 02/21/18 12/23/19 Albuterol Inhaler [Ventolin Hfa 2 puff INHALATION Q4-6H PRN 12/23/19 12/23/19 Inhaler] Fluticasone/Salmeterol [Advair 1 puff INHALATION RT-BID 12/23/19 12/23/19 250-50 Diskus] Ibuprofen [Motrin] 400 mg PO DAILY PRN 12/23/19 12/23/19 Previous Rx's Medication Instructions Recorded Escitalopram [Lexapro] 20 mg PO DAILY #30 tab 07/02/17 Gabapentin [Neurontin] 600 mg PO TID #0 cap 07/02/17 Mupirocin 2% Oint [Bactroban 2% 1 applic TOPICAL TID 10 Days #1 12/23/19 Oint] tube Sulfamethox-Tmp 800-160Mg [Bactrim 1 tab PO Q12HR 10 Days #20 tab 12/23/19 DS 800-160 mg] Mupirocin 2% Oint [Bactroban 2% 1 applic TOPICAL TID #60 gm 03/03/20 Oint] Sulfamethox-Tmp 800-160Mg [Bactrim 2 tab PO Q12HR #40 tab 03/03/20 DS 800-160 mg] Allergies Allergy/AdvReac Type Severity Reaction Status Date / Time amphetamine aspartate Allergy SEIZURES Verified 03/03/20 11:53 [From Adderall] amphetamine sulfate Allergy SEIZURES Verified 03/03/20 11:53 [From Adderall] dextroamphetamine saccharate Allergy SEIZURES Verified 03/03/20 11:53 [From Adderall] dextroamphetamine sulfate Allergy SEIZURES Verified 03/03/20 11:53 [From Adderall] lamotrigine [From Lamictal] Allergy SEIZURE Verified 03/03/20 11:53 tramadol Allergy "FELT LIKE Verified 03/03/20 11:53 I WAS GOING TO HAVE A SEIZURE" morphine AdvReac Severe Nausea & Verified 03/03/20 11:53 Vomiting latex AdvReac Mild Dry Verified 03/03/20 11:53 Cracked Skin/RASH Review of Systems ROS Statement: Those systems with pertinent positive or pertinent negative responses have been documented in the HPI. ROS Other: All systems not noted in ROS Statement are negative. 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, LILIANA- non compliant with CPAP, Overactive bladder History of Any Multi-Drug Resistant Organisms: MRSA Date of last positivie culture/infection: 12/23/19 MDRO Source:: MRSA GROIN Past Surgical History: Adenoidectomy, Breast Surgery, Tonsillectomy, Tubal Ligation Additional Past Surgical History / Comment(s): tubes in ears, breast reduction, colonoscopy/EGD- multiple, incision and drainage of wound rt anticubital, hx alcholism Past Anesthesia/Blood Transfusion Reactions: Previous Problems w/ Anesthesia, Family History of Problems w/ Anesthesia, Motion Sickness, Postoperative Nausea & Vomiting (PONV) Additional Past Anesthesia/Blood Transfusion Reaction / Comment(s): states mother had coded during surgery Past Psychological History: Anxiety, Bipolar, Depression, PTSD Smoking Status: Current every day smoker Past Alcohol Use History: Occasional Past Drug Use History: Marijuana, Prescription Drug Abuse - Past Family History Father Family Medical History: Asthma Additional Family Medical History / Comment(s): Dad is 55 years of age. He also has history of ulcerative colitis. Mother Family Medical History: Rheumatoid Arthritis (RA), Thyroid Disorder Additional Family Medical History / Comment(s): Mother is 47 years of age, Atul's thyroiditis General Exam - General Exam Comments Initial Comments: 35-year-old female. Alert and oriented. No distress. Limitations: no limitations General appearance: alert, in no apparent distress Head exam: Present: atraumatic, normocephalic, normal inspection Eye exam: Present: normal appearance, PERRL, EOMI. Absent: scleral icterus, conjunctival injection, periorbital swelling ENT exam: Present: normal exam, normal oropharynx, mucous membranes moist Neck exam: Present: normal inspection. Absent: tenderness, meningismus, lympha denopathy Respiratory exam: Present: normal lung sounds bilaterally. Absent: respiratory distress, wheezes, rales, rhonchi, stridor Cardiovascular Exam: Present: regular rate, normal rhythm, normal heart sounds. Absent: systolic murmur, diastolic murmur, rubs, gallop, clicks GI/Abdominal exam: Present: soft, other (Patient has erythema multiple papular- like lesions over her abdomen. She is a central area measuring 4 cm x 5 cm that has been excoriated. ) Extremities exam: Present: normal inspection, full ROM, normal capillary refill. Absent: tenderness, pedal edema, joint swelling, calf tenderness Back exam: Present: normal inspection, full ROM Neurological exam: Present: alert, oriented X3, CN II-XII intact Psychiatric exam: Present: normal affect, normal mood Skin exam: Present: warm, dry, intact, normal color. Absent: rash Course Vital Signs 03/03/20 11:49 Temperature 98.3 F Pulse Rate 110 H Respiratory 18 Rate Blood Pressure 121/80 O2 Sat by Pulse 99 Oximetry Medical Decision Making - Medical Decision Making 35-year-old female presents emergency for evaluation for skin irritation over abdomen. Patient has had these areas of itching occur for the past 4 days. She reports that she scratched raw. Patient has multiple areas of developing ea rlier ones. She states she said history of MRSA in the past. She did take a leftover Bactrim today. At this time patient's wound was cultured. Patient will be advised to use antibiotic ointment, and started on Bactrim. Advised close PCP follow-up. Disposition Clinical Impression: Dermatitis Disposition: HOME SELF-CARE Condition: Stable Instructions (If sedation given, give patient instructions): Dermatitis (ED) Additional Instructions: Please use medication as discussed. Please follow up with family doctor if symptoms have not improved over the next two days. Please return to the emergency room if your symptoms increase or worsen or for any other concerns. Prescriptions: Sulfamethox-Tmp 800-160Mg [Bactrim DS 800-160 mg] 2 tab PO Q12HR #40 tab Mupirocin 2% Oint [Bactroban 2% Oint] 1 applic TOPICAL TID #60 gm Is patient prescribed a controlled substance at d/c from ED?: No Referrals: Marshall Anderson [Primary Care Provider] - 1-2 days Time of Disposition: 12:50
[2020-03-03 13:16] VITALS: BP 126/82; PULSE 105
== END 2020-03-03 13:16 | disposition home or self-care (01) ==
LOC: EC 11:38
DX: L30.9 Dermatitis, unspecified (principal); J45.909 Unspecified asthma, uncomplicated; K21.9 Gastro-esophageal reflux disease without esophagitis; G47.33 Obstructive sleep apnea (adult) (pediatric); F41.9 Anxiety disorder, unspecified; F31.9 Bipolar disorder, unspecified; F17.200 Nicotine dependence, unspecified, uncomplicated; Z79.899 Other long term (current) drug therapy; Z79.51 Long term (current) use of inhaled steroids; Z88.8 Allergy status to other drugs, medicaments and biological substances; Z88.5 Allergy status to narcotic agent; Z91.040 Latex allergy status; Z99.89 Dependence on other enabling machines and devices; Z86.14 Personal history of Methicillin resistant Staphylococcus aureus infection
CPT/HCPCS: 87070; 87205; 99284

== ENCOUNTER 2021-07-22 02:55 | Emergency (ER) | payer MEDICARE, OTHER ==
[2021-07-22 03:04] VITALS: TEMP 97.7
--- NOTE | 2021-07-22 03:45 | ED ---
Female Urogenital HPI - General Chief complaint: Vaginal Bleeding Stated complaint: vaginal bleeding, dizziness Time Seen by Provider: 07/22/21 03:13 Source: patient, family, RN notes reviewed, old records reviewed Mode of arrival: ambulatory Limitations: no limitations - History of Present Illness Initial comments: This is a 36-year-old female to the emergency department for evaluation does admit to sexual activity tonight. After activity patient significant bleeding. The noted significant bleeding that she stood up and was returning with the bat hroom prior to arrival and then once here in the emergency department. Patient is passing clots. No other abdominal pain no other complaints no history of vaginal bleeding without trauma. MD Complaint: vaginal bleeding, other (vaginal trauma FB toy) -: hour(s) Location: suprapubic Radiation: suprapubic Severity: moderate Quality: cramping Consistency: constant Improves with: none Worsens with: none Patient : No Associated Symptoms: vaginal bleeding, abdominal pain - Related Data Home Medications Medication Instructions Recorded Confirmed ALPRAZolam [Xanax] 0.5 mg PO BID PRN 11/14/17 12/23/19 OLANZapine [ZyPREXA] 15 mg PO HS 11/14/17 12/23/19 cloNIDine HCL [Catapres] 0.1 mg PO HS 11/14/17 12/23/19 Omeprazole 40 mg PO BID 02/21/18 12/23/19 Sucralfate [Carafate] 1 gm PO AC-BID 02/21/18 12/23/19 ondansetron HCL [Zofran] 4 mg PO TID PRN 02/21/18 12/23/19 Albuterol Inhaler [Ventolin Hfa 2 puff INHALATION Q4-6H PRN 12/23/19 12/23/19 Inhaler] Fluticasone/Salmeterol [Advair 1 puff INHALATION RT-BID 12/23/19 12/23/19 250-50 Diskus] Ibuprofen [Motrin] 400 mg PO DAILY PRN 12/23/19 12/23/19 Previous Rx's Medication Instructions Recorded Escitalopram [Lexapro] 20 mg PO DAILY #30 tab 07/02/17 Gabapentin [Neurontin] 600 mg PO TID #0 cap 07/02/17 Mupirocin 2% Oint [Bactroban 2% 1 applic TOPICAL TID 10 Days #1 12/23/19 Oint] tube Sulfamethox-Tmp 800-160Mg [Bactrim 1 tab PO Q12HR 10 Days #20 tab 12/23/19 DS 800-160 mg] Mupirocin 2% Oint [Bactroban 2% 1 applic TOPICAL TID #60 gm 03/03/20 Oint] Sulfamethox-Tmp 800-160Mg [Bactrim 2 tab PO Q12HR #40 tab 03/03/20 DS 800-160 mg] Allergies Allergy/AdvReac Type Severity Reaction Status Date / Time amphetamine aspartate Allergy SEIZURES Verified 07/22/21 03:04 [From Adderall] amphetamine sulfate Allergy SEIZURES Verified 07/22/21 03:04 [From Adderall] dextroamphetamine saccharate Allergy SEIZURES Verified 07/22/21 03:04 [From Adderall] dextroamphetamine sulfate Allergy SEIZURES Verified 07/22/21 03:04 [From Adderall] lamotrigine [From Lamictal] Allergy SEIZURE Verified 07/22/21 03:04 tramadol Allergy "FELT LIKE Verified 07/22/21 03:04 I WAS GOING TO HAVE A SEIZURE" morphine AdvReac Severe Nausea & Verified 07/22/21 03:04 Vomiting latex AdvReac Mild Dry Verified 07/22/21 03:04 Cracked Skin/RASH Review of Systems ROS Statement: Those systems with pertinent positive or pertinent negative responses have been documented in the HPI. ROS Other: All systems not noted in ROS Statement are negative. 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, LILIANA- non compliant with CPAP, Overactive bladder History of Any Multi-Drug Resistant Organisms: MRSA Date of last positivie culture/infection: 12/23/19 MDRO Source:: MRSA GROIN Past Surgical History: Adenoidectomy, Breast Surgery, Tonsillectomy, Tubal Ligation Additional Past Surgical History / Comment(s): tubes in ears, breast reduction, colonoscopy/EGD- multiple, incision and drainage of wound rt anticubital, hx alcholism Past Anesthesia/Blood Transfusion Reactions: Previous Problems w/ Anesthesia, Family History of Problems w/ Anesthesia, Motion Sickness, Postoperative Nausea & Vomiting (PONV) Additional Past Anesthesia/Blood Transfusion Reaction / Comment(s): states mother had coded during surgery Past Psychological History: Anxiety, Bipolar, Depression, PTSD Smoking Status: Current every day smoker Past Alcohol Use History: Occasional Past Drug Use History: Marijuana, Prescription Drug Abuse - Past Family History Father Family Medical History: Asthma Additional Family Medical History / Comment(s): Dad is 55 years of age. He also has history of ulcerative colitis. Mother Family Medical History: Rheumatoid Arthritis (RA), Thyroid Disorder Additional Family Medical History / Comment(s): Mother is 47 years of age, Atul's thyroiditis General Exam Limitations: no limitations General appearance: alert, in no apparent distress, anxious Head exam: Present: atraumatic, normocephalic, normal inspection Eye exam: Present: normal appearance, PERRL, EOMI. Absent: scleral icterus, conjunctival injection, periorbital swelling ENT exam: Present: normal exam, mucous membranes moist Neck exam: Present: normal inspection. Absent: tenderness, meningismus, lymphadenopathy Respiratory exam: Present: normal lung sounds bilaterally. Absent: respiratory distress, wheezes, rales, rhonchi, stridor Cardiovascular Exam: Present: normal rhythm, tachycardia, normal heart sounds. Absent: systolic murmur, diastolic murmur, rubs, gallop, clicks GI/Abdominal exam: Present: soft, normal bowel sounds. Absent: distended, tenderness, guarding, rebound, rigid External exam: Present: normal external exam Speculum exam: Present: normal speculum exam By manual exam: Present: normal by manual exam Extremities exam: Present: normal inspection, full ROM, normal capillary refill. Absent: tenderness, pedal edema, joint swelling, calf tenderness Back exam: Present: normal inspection Neurological exam: Present: alert, oriented X3, CN II-XII intact Psychiatric exam: Present: normal affect, normal mood Skin exam: Present: warm, dry, intact, normal color. Absent: rash Course Vital Signs 07/22/21 07/22/21 03:00 05:04 Temperature 97.7 F Pulse Rate 111 H 92 Respiratory 24 16 Rate Blood Pressure 145/100 135/95 O2 Sat by Pulse 100 98 Oximetry - Reevaluation(s) Reevaluation #1: Medical record is reviewed Patient symptoms are improved here in the ER Patient informed results questions answered Medical Decision Making - Medical Decision Making 36 female patient's bleeding stopped here without intervention. Patient can be discharged home - Lab Data Result diagrams: 07/22/21 04:11 07/22/21 04:11 Lab Results 07/22/21 07/22/21 07/22/21 Range/Units 03:53 03:53 04:11 WBC 9.7 (3.8-10.6) k/uL RBC 4.46 (3.80-5.40) m/uL Hgb 14.5 (11.4-16.0) gm/dL Hct 42.7 (34.0-46.0) % MCV 95.8 (80.0-100.0) fL MCH 32.4 (25.0-35.0) pg MCHC 33.9 (31.0-37.0) g/dL RDW 11.7 (11.5-15.5) % Plt Count 327 (150-450) k/uL MPV 7.8 Neutrophils % 65 % Lymphocytes % 26 % Monocytes % 5 % Eosinophils % 1 % Basophils % 1 % Neutrophils # 6.3 (1.3-7.7) k/uL Lymphocytes # 2.5 (1.0-4.8) k/uL Monocytes # 0.5 (0-1.0) k/uL Eosinophils # 0.1 (0-0.7) k/uL Basophils # 0.1 (0-0.2) k/uL Sodium (137-145) mmol/L Potassium (3.5-5.1) mmol/L Chloride (98-107) mmol/L Carbon Dioxide (22-30) mmol/L Anion Gap mmol/L BUN (7-17) mg/dL Creatinine (0.52-1.04) mg/dL Est GFR (CKD-EPI)AfAm (>60 ml/min/1.73 sqM) Est GFR (CKD-EPI)NonAf (>60 ml/min/1.73 sqM) Glucose (74-99) mg/dL Calcium (8.4-10.2) mg/dL Total Bilirubin (0.2-1.3) mg/dL AST (14-36) U/L ALT (4-34) U/L Alkaline Phosphatase (38-126) U/L Total Protein (6.3-8.2) g/dL Albumin (3.5-5.0) g/dL Urine Color Red Urine Appearance Cloudy H (Clear) Urine pH 6.5 (5.0-8.0) Ur Specific [place] 1.018 (1.001-1.035) Urine Protein 1+ H (Negative) Urine Glucose (UA) Negative (Negative) Urine Ketones Negative (Negative) Urine Blood Large H (Negative) Urine Nitrite Negative (Negative) Urine Bilirubin Negative (Negative) Urine Urobilinogen <2.0 (<2.0) mg/dL Ur Leukocyte Esterase Small H (Negative) Urine RBC >182 H (0-5) /hpf Urine WBC 6 H (0-5) /hpf Urine Mucus Rare H (None) /hpf Urine HCG, Qual Not Detected (Not Detectd) 07/22/21 Range/Units 04:11 WBC (3.8-10.6) k/uL RBC (3.80-5.40) m/uL Hgb (11.4-16.0) gm/dL Hct (34.0-46.0) % MCV (80.0-100.0) fL MCH (25.0-35.0) pg MCHC (31.0-37.0) g/dL RDW (11.5-15.5) % Plt Count (150-450) k/uL MPV Neutrophils % % Lymphocytes % % Monocytes % % Eosinophils % % Basophils % % Neutrophils # (1.3-7.7) k/uL Lymphocytes # (1.0-4.8) k/uL Monocytes # (0-1.0) k/uL Eosinophils # (0-0.7) k/uL Basophils # (0-0.2) k/uL Sodium 135 L (137-145) mmol/L Potassium 3.6 (3.5-5.1) mmol/L Chloride 105 (98-107) mmol/L Carbon Dioxide 22 (22-30) mmol/L Anion Gap 8 mmol/L BUN 8 (7-17) mg/dL Creatinine 0.73 (0.52-1.04) mg/dL Est GFR (CKD-EPI)AfAm >90 (>60 ml/min/1.73 sqM) Est GFR (CKD-EPI)NonAf >90 (>60 ml/min/1.73 sqM) Glucose 84 (74-99) mg/dL Calcium 9.9 (8.4-10.2) mg/dL Total Bilirubin 0.8 (0.2-1.3) mg/dL AST 22 (14-36) U/L ALT 11 (4-34) U/L Alkaline Phosphatase 101 (38-126) U/L Total Protein 7.1 (6.3-8.2) g/dL Albumin 4.5 (3.5-5.0) g/dL Urine Color Urine Appearance (Clear) Urine pH (5.0-8.0) Ur Specific [place] (1.001-1.035) Urine Protein (Negative) Urine Glucose (UA) (Negative) Urine Ketones (Negative) Urine Blood (Negative) Urine Nitrite (Negative) Urine Bilirubin (Negative) Urine Urobilinogen (<2.0) mg/dL Ur Leukocyte Esterase (Negative) Urine RBC (0-5) /hpf Urine WBC (0-5) /hpf Urine Mucus (None) /hpf Urine HCG, Qual (Not Detectd) Disposition Clinical Impression: Dysfunctional uterine bleeding, Vaginal bleeding Disposition: HOME SELF-CARE Condition: Good Instructions (If sedation given, give patient instructions): Abnormal (Dysfunctional) Uterine Bleeding (ED) Is patient prescribed a controlled substance at d/c from ED?: No Referrals: Lucero Davis DO [Primary Care Provider] - 1-2 days
[2021-07-22] MEDS: SODIUM CHLORIDE 0.9% 1,000 ML IV STA (04:15)
[2021-07-22 04:54] LABS: ALT 11 U/L (4-34); AST 22 U/L (14-36); African American GFR (CKD) >90 (>60 ml/min/1.73 sqM); Albumin 4.5 g/dL (3.5-5.0); Alkaline Phosphatase 101 U/L (38-126); Anion Gap 8 mmol/L; Blood Urea Nitrogen 8 mg/dL (7-17); Calcium 9.9 mg/dL (8.4-10.2); Carbon Dioxide 22 mmol/L (22-30); Chloride 105 mmol/L (98-107); Glucose 84 mg/dL (74-99); Non-African American GFR(CKD) >90 (>60 ml/min/1.73 sqM); Potassium 3.6 mmol/L (3.5-5.1); Sodium 135 mmol/L (137-145); Total Bilirubin 0.8 mg/dL (0.2-1.3); Total Protein 7.1 g/dL (6.3-8.2)
[2021-07-22 04:57] LABS: Basophils # (A) 0.1 k/uL (0-0.2); Basophils % (A) 1 %; Eosinophils # (A) 0.1 k/uL (0-0.7); Eosinophils % (A) 1 %; HCT 42.7 % (34.0-46.0); HGB 14.5 gm/dL (11.4-16.0); Lymphocytes # (A) 2.5 k/uL (1.0-4.8); Lymphocytes % (A) 26 %; MCH 32.4 pg (25.0-35.0); MCHC 33.9 g/dL (31.0-37.0); MCV 95.8 fL (80.0-100.0); Mean Platelet Volume 7.8; Monocytes # (A) 0.5 k/uL (0-1.0); Monocytes % (A) 5 %; Neutrophils # (A) 6.3 k/uL (1.3-7.7); Neutrophils % (A) 65 %; Platelet Count 327 k/uL (150-450); RBC 4.46 m/uL (3.80-5.40); RDW 11.7 % (11.5-15.5); WBC 9.7 k/uL (3.8-10.6)
[2021-07-22 05:04] LABS: Appearance,Urine Cloudy (Clear); Bilirubin,Urine Negative (Negative); Blood,Urine Large (Negative); Color,Urine Red; Glucose,Urine (UA) Negative (Negative); Ketones,Urine Negative (Negative); Leukocyte Esterase,Urine Small (Negative); Mucus,Urine Rare /hpf; Nitrite,Urine Negative (Negative); PH, Urine 6.5 (5.0-8.0); Protein,Urine 1+ (Negative); RBC,Urine >182 /hpf (0-5); Specific Gravity,Urine 1.018 (1.001-1.035); Urobilinogen,Urine <2.0 mg/dL (<2.0); WBC,Urine 6 /hpf (0-5)
[2021-07-22 05:33] VITALS: BP 135/95; PULSE 92; RESP 16
== END 2021-07-22 05:32 | disposition home or self-care (01) ==
LOC: EC 02:55
DX: N93.8 Other specified abnormal uterine and vaginal bleeding (principal); J45.909 Unspecified asthma, uncomplicated; K21.9 Gastro-esophageal reflux disease without esophagitis; F41.9 Anxiety disorder, unspecified; F31.9 Bipolar disorder, unspecified; F43.10 Post-traumatic stress disorder, unspecified; F17.200 Nicotine dependence, unspecified, uncomplicated; Z72.89 Other problems related to lifestyle
CPT/HCPCS: 36415; 80053; 81001; 81025; 85025; 96361; 99284

== ENCOUNTER 2022-12-26 17:56 | Emergency (ER) | payer MEDICARE, OTHER ==
[2022-12-26 18:16] VITALS: BP 106/60; PULSE 100; RESP 20; TEMP 98.4
--- NOTE | 2022-12-26 18:40 | XR ---
EXAMINATION TYPE: XR knee complete LT DATE OF EXAM: 12/26/2022 6:31 PM INDICATION: Patient age:Female; 37 years old; Reason for study: fall pain; COMPARISON: None. TECHNIQUE: The Left knee(s) was examined in Frontal, lateral and oblique projections. FINDINGS: No evidence of any acute osseous pathology, soft tissue swelling, or joint effusion is no irma. IMPRESSION: 1. No acute osseous pathology.
--- NOTE | 2022-12-26 19:52 | ED ---
General Adult HPI - General Chief complaint: Extremity Injury, Lower Stated complaint: Fall,L Knee Pain Time Seen by Provider: 12/26/22 18:41 Source: patient, RN notes reviewed Mode of arrival: ambulatory Limitations: no limitations - History of Present Illness Initial comments: 37-year-old female presents to the emergency department chief complaint of left knee pain. She states that she fell down 2 stairs earlier today and landed on her left knee. She states that she heard a "pop" at this time. She reports pain with walking. She denies any other injury during the fall. Denies head injury. - Related Data Home Medications Medication Instructions Recorded Confirmed ALPRAZolam [Xanax] 0.5 mg PO BID PRN 11/14/17 12/23/19 OLANZapine [ZyPREXA] 15 mg PO HS 11/14/17 12/23/19 cloNIDine HCL [Catapres] 0.1 mg PO HS 11/14/17 12/23/19 Omeprazole 40 mg PO BID 02/21/18 12/23/19 Sucralfate [Carafate] 1 gm PO AC-BID 02/21/18 12/23/19 ondansetron HCL [Zofran] 4 mg PO TID PRN 02/21/18 12/23/19 Albuterol Inhaler [Ventolin Hfa 2 puff INHALATION Q4-6H PRN 12/23/19 12/23/19 Inhaler] Fluticasone Propion/Salmeterol 1 puff INHALATION RT-BID 12/23/19 12/23/19 [Advair 250-50 Diskus] Ibuprofen [Motrin] 400 mg PO DAILY PRN 12/23/19 12/23/19 Previous Rx's Medication Instructions Recorded Escitalopram [Lexapro] 20 mg PO DAILY #30 tab 07/02/17 Gabapentin [Neurontin] 600 mg PO TID #0 cap 07/02/17 Mupirocin 2% Oint [Bactroban 2% 1 applic TOPICAL TID 10 Days #1 12/23/19 Oint] tube Sulfamethox-Tmp 800-160Mg [Bactrim 1 tab PO Q12HR 10 Days #20 tab 12/23/19 DS 800-160 mg] Mupirocin 2% Oint [Bactroban 2% 1 applic TOPICAL TID #60 gm 03/03/20 Oint] Sulfamethox-Tmp 800-160Mg [Bactrim 2 tab PO Q12HR #40 tab 03/03/20 DS 800-160 mg] Allergies Allergy/AdvReac Type Severity Reaction Status Date / Time amphetamine aspartate Allergy SEIZURES Verified 07/22/21 03:04 [From Adderall] amphetamine sulfate Allergy SEIZURES Verified 07/22/21 03:04 [From Adderall] dextroamphetamine saccharate Allergy SEIZURES Verified 07/22/21 03:04 [From Adderall] dextroamphetamine sulfate Allergy SEIZURES Verified 07/22/21 03:04 [From Adderall] lamotrigine [From Lamictal] Allergy SEIZURE Verified 07/22/21 03:04 tramadol Allergy "FELT LIKE Verified 07/22/21 03:04 I WAS GOING TO HAVE A SEIZURE" morphine AdvReac Severe Nausea & Verified 07/22/21 03:04 Vomiting latex AdvReac Mild Dry Verified 07/22/21 03:04 Cracked Skin/RASH Review of Systems ROS Statement: Those systems with pertinent positive or pertinent negative responses have been documented in the HPI. ROS Other: All systems not noted in ROS Statement are negative. 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, LILIANA- non compliant with CPAP, Overactive bladder History of Any Multi-Drug Resistant Organisms: MRSA Date of last positivie culture/infection: 12/23/19 MDRO Source:: MRSA GROIN Past Surgical History: Adenoidectomy, Breast Surgery, Tonsillectomy, Tubal Ligation Additional Past Surgical History / Comment(s): tubes in ears, breast reduction, colonoscopy/EGD- multiple, incision and drainage of wound rt anticubital, hx alcholism Past Anesthesia/Blood Transfusion Reactions: Previous Problems w/ Anesthesia, Family History of Problems w/ Anesthesia, Motion Sickness, Postoperative Nausea & Vomiting (PONV) Additional Past Anesthesia/Blood Transfusion Reaction / Comment(s): states mother had coded during surgery Past Psychological History: Anxiety, Bipolar, Depression, PTSD Smoking Status: Current every day smoker Past Alcohol Use History: Occasional Past Drug Use History: Marijuana, Prescription Drug Abuse - Past Family History Father Family Medical History: Asthma Additional Family Medical History / Comment(s): Dad is 55 years of age. He also has history of ulcerative colitis. Mother Family Medical History: Rheumatoid Arthritis (RA), Thyroid Disorder Additional Family Medical History / Comment(s): Mother is 47 years of age, Atul's thyroiditis General Exam Limitations: no limitations General appearance: alert, in no apparent distress Head exam: Present: atraumatic, normocephalic, normal inspection Eye exam: Present: normal appearance ENT exam: Present: normal exam Neck exam: Present: normal inspection. Absent: tenderness, meningismus, lymphadenopathy Respiratory exam: Present: normal lung sounds bilaterally. Absent: respiratory distress, wheezes, rales, rhonchi, stridor Cardiovascular Exam: Present: regular rate, normal rhythm, normal heart sounds. Absent: systolic murmur, diastolic murmur, rubs, gallop, clicks Extremities exam: Present: tenderness (medial knee), normal capillary refill, other (DP and PT pulses 2+, swelling to medial aspect of left knee). Absent: full ROM (decrease ROM due to pain) Back exam: Present: normal inspection Neurological exam: Present: alert, oriented X3 Psychiatric exam: Present: normal affect, normal mood Skin exam: Present: warm, dry, intact, normal color. Absent: rash Course Vital Signs 12/26/22 18:13 Temperature 98.4 F Pulse Rate 100 Respiratory 20 Rate Blood Pressure 106/60 O2 Sat by Pulse 98 Oximetry Medical Decision Making - Medical Decision Making Was pt. sent in by a medical professional or institution (, PA, MOTHER HELPER, urgent care, hospital, or usp...) When possible be specific @ -No Did you speak to anyone other than the patient for history (EMS, parent, family, police, friend...)? What history was obtained from this source @ -No Did you review nursing and triage notes (agree or disagree)? Why? @ -I reviewed and agree with nursing and triage notes Were old charts reviewed (outside hosp., previous admission, EMS record, old EKG, old radiological studies, urgent care reports/EKG's, usp records)? Report findings @ -No old charts were reviewed Differential Diagnosis (chest pain, altered mental status, abdominal pain women, abdominal pain men, vaginal bleeding, weakness, fever, dyspnea, syncope, headache, dizziness, GI bleed, back pain, seizure, CVA, palpatations, mental health, musculoskeletal)? @ -Differential Musculoskeletal Muscular strain, contusion, ligament sprain, fracture, arthritis, septic arthritis, bursitis, cellulitis, muscle spasm, nerve compression, DVT, arterial occlusion, herpes zoster, electrolyte abnormality, tumor.... This is not meant to be in all inclusive list EKG interpreted by me (3pts min.). @ -none X-rays interpreted by me (1pt min.). @ -XR left knee showed no evidence for acute fracture CT interpreted by me (1pt min.). @ -None done U/S interpreted by me (1pt. min.). @ -None done What testing was considered but not performed or refused? (CT, X-rays, U/S, labs)? Why? @ -None What meds were considered but not given or refused? Why? @ -None Did you discuss the management of the patient with other professionals (professionals i.e. , PA, MOTHER HELPER, lab, RT, psych nurse, social science professor, specialty person, teacher, surveillance sensor officer, wrapper caser)? Give summary @ -No Was smoking cessation discussed for >3mins.? @ -No Was critical care preformed (if so, how long)? @ -No Were there social determinants of health that impacted care today? How? (Homelessness, low income, unemployed, alcoholism, drug addiction, transportation, low edu. Level, literacy, decrease access to med. care, long-term, rehab)? @ -No Was there de-escalation of care discussed even if they declined (Discuss DNR or withdrawal of care, Hospice)? DNR status @ -No What co-morbidities impacted this encounter? (DM, HTN, Smoking, COPD, CAD, Cancer, CVA, ARF, Chemo, Hep., AIDS, mental health diagnosis, sleep apnea, morbid obesity)? @ -None Was patient admitted / discharged? Hospital course, mention meds given and route, prescriptions, significant lab abnormalities, going to OR and other pertinent info. @ -discharged. Patient presented to the emergency department for chief complaint of left knee pain following a fall that occurred earlier today. She reports that she is able to bear weight on the left leg but it is very painful for her. X-ray left knee obtained which showed no evidence of acute fracture. Patient was placed in a knee immobilizer, given crutches and advised to have orthopedic follow up if she does not have improvement in symptoms. Instructed to follow up with her primary care provider, SILVIA, and alternate Tylenol and Motrin as needed for pain. Patient stable at time of discharge. Case discussed with my attending, Dr. Arroyo Undiagnosed new problem with uncertain prognosis? @ -No Drug Therapy requiring intensive monitoring for toxicity (Heparin, Nitro, Insulin, Cardizem)? @ -No Were any procedures done? @ -No Diagnosis/symptom? @ -left knee sprain Acute, or Chronic, or Acute on Chronic? @ -acute Uncomplicated (without systemic symptoms) or Complicated (systemic symptoms)? @ -uncomplicated Side effects of treatment? @ -No Exacerbation, Progression, or Severe Exacerbation? @ -No Poses a threat to life or bodily function? How? (Chest pain, [place], [place], pneumonia, PE, COPD, DKA, ARF, appy, cholecystitis, CVA, Diverticulitis, Homicidal, Suicidal, threat to staff... and all critical care pts) @ -No Disposition Clinical Impression: Left knee sprain Disposition: HOME SELF-CARE Condition: Stable Instructions (If sedation given, give patient instructions): Knee Sprain (ED) Additional Instructions: Follow up with your primary care provider. Follow up with orthopedics if symptoms do not start to improve. Alternate Tylenol and Motrin as needed for pain. Return to the emergency department for new or worsening symptoms. Is patient prescribed a controlled substance at d/c from ED?: No Referrals: Lucero Davis DO [Primary Care Provider] - 1-2 days Tesfaye Pennington DO [Doctor of Osteopathic Medicine] - 1-2 days Time of Disposition: 19:52
== END 2022-12-26 20:06 | disposition home or self-care (01) ==
LOC: EC 17:56
DX: S83.92XA Sprain of unspecified site of left knee, initial encounter (principal); J45.909 Unspecified asthma, uncomplicated; K21.9 Gastro-esophageal reflux disease without esophagitis; F41.9 Anxiety disorder, unspecified; F31.9 Bipolar disorder, unspecified; F17.200 Nicotine dependence, unspecified, uncomplicated; F12.90 Cannabis use, unspecified, uncomplicated; Z79.51 Long term (current) use of inhaled steroids; Z79.899 Other long term (current) drug therapy; Z91.040 Latex allergy status; Z88.5 Allergy status to narcotic agent; Z88.6 Allergy status to analgesic agent; Z88.8 Allergy status to other drugs, medicaments and biological substances; Z88.1 Allergy status to other antibiotic agents; W10.9XXA Fall (on) (from) unspecified stairs and steps, initial encounter; Y93.01 Activity, walking, marching and hiking
CPT/HCPCS: 99284